=== PATIENT | female | born 1985 | race Caucasian/White ===

== ENCOUNTER 2017-11-24 15:18 | Emergency (ER) | payer BC, OTHER ==
[~2017-11-24] VITALS: Ht 162.6 cm; Wt 122.5 kg
--- NOTE | 2017-11-24 15:29 | ED Chest Pain ---
General Stated Complaint: CHEST PAIN Source: patient, EMS Exam Limitations: no limitations History of Present Illness Date Seen by Provider: November 24, 2017 Time Seen by Provider: 15:24 Initial Comments To ER per EMS from [facility] in [facility] where she presented with reports of chest tightness. She first noticed this chest tightness upon awakening this morning at about 8:30 AM he seemed to be brought on by bending over and worsens with certain movements, . She denies any associated shortness of breath or nausea. She states that she does get this chest tightness from time to time and states that it is typically associated with high blood pressure. Should she is on metoprolol daily, clonidine and hydrochlorothiazide. She took all of those. Upon EMS arrival blood pressure 120/ 80. Despite that her chest pain persists that about a 5 out of 10. She describes it as sharp and worse with movement. She was given aspirin 324 mg in route by EMS. No nitroglycerin. She has a father who had heart attack, mother is healthy, siblings are healthy. She is a diabetic herself. She is nonsmoker. Timing/Duration: constant Severity/Quality: moderate Location: central Radiation: no radiation Activities at Onset: rest Prior CP/Workup: no prior chest pain ASA po STORE LEAD: No NTG SL STORE LEAD: No Associated Symptoms: No nausea/vomiting, No shortness of breath Allergies and Home Medications Allergies Coded Allergies: pseudoephedrine (Unverified Adverse Reaction, Unknown, 11/24/17) PT STATES CAUSES VOMITING triprolidine (Unverified Adverse Reaction, Unknown, 11/24/17) PT STATES CAUSES VOMITING Patient Home Medication List Home Medication List Reviewed: Yes Review of Systems Constitutional: see HPI EENTM: No Symptoms Reported Respiratory: No Symptoms Reported Cardiovascular: See HPI, Chest Pain Gastrointestinal: No Symptoms Reported Genitourinary: No Symptoms Reported Musculoskeletal: no symptoms reported Skin: no symptoms reported Psychiatric/Neurological: No Symptoms Reported Endocrine: No Symptoms Reported Hematologic/Lymphatic: No Symptoms Reported Physical Exam Vital Signs Vital Signs - First Documented 11/24/17 16:47 Pulse Ox 95 Capillary Refill : General Appearance: No Apparent Distress, WD/WN, Obese HEENT: PERRL/EOMI, TMs Normal Neck: Full Range of Motion, Normal Inspection Respiratory: Lungs Clear, Normal Breath Sounds, No Accessory Muscle Use, No Respiratory Distress, Other (The left sternal border is tender to palpation and this does reproduce her pain) Cardiovascular: Regular Rate, Rhythm, Normal Peripheral Pulses Gastrointestinal: Normal Bowel Sounds, Non Tender, Soft Extremity: Normal Capillary Refill, Normal Inspection Neurologic/Psychiatric: Alert, Oriented x3 Skin: Normal Color, Warm/Dry Progress/Results/Core Measures Lab Results Laboratory Tests Test 11/24/17 15:30 11/24/17 15:53 Range/Units White Blood Count 8.0 4.3-11.0 10^3/uL Red Blood Count 4.57 4.35-5.85 10^6/uL Hemoglobin 12.6 11.5-16.0 G/DL Hematocrit 38 35-52 % Mean Corpuscular Volume 83 80-99 FL Mean Corpuscular Hemoglobin 28 25-34 PG Mean Corpuscular Hemoglobin Concent 33 32-36 G/DL Red Cell Distribution Width 13.0 10.0-14.5 % Platelet Count 289 130-400 10^3/uL Mean Platelet Volume 9.7 7.4-10.4 FL Neutrophils (%) (Auto) 66 42-75 % Lymphocytes (%) (Auto) 24 12-44 % Monocytes (%) (Auto) 7 0-12 % Eosinophils (%) (Auto) 3 0-10 % Basophils (%) (Auto) 1 0-10 % Neutrophils # (Auto) 5.3 1.8-7.8 X 10^3 Lymphocytes # (Auto) 1.9 1.0-4.0 X 10^3 Monocytes # (Auto) 0.6 0.0-1.0 X 10^3 Eosinophils # (Auto) 0.2 0.0-0.3 10^3/uL Basophils # (Auto) 0.0 0.0-0.1 10^3/uL Prothrombin Time 13.2 12.2-14.7 SEC INR Comment 1.0 0.8-1.4 Activated Partial Thromboplast Time 24 24-35 SEC Sodium Level 137 135-145 MMOL/L Potassium Level 4.7 3.6-5.0 MMOL/L Chloride Level 102 98-107 MMOL/L Carbon Dioxide Level 26 21-32 MMOL/L Anion Gap 9 5-14 MMOL/L Blood Urea Nitrogen 9 7-18 MG/DL Creatinine 0.63 0.60-1.30 MG/DL Estimat Glomerular Filtration Rate > 60 BUN/Creatinine Ratio 14 Glucose Level 216 H 70-105 MG/DL Calcium Level 9.1 8.5-10.1 MG/DL Magnesium Level 2.4 1.8-2.4 MG/DL Total Bilirubin 0.2 0.1-1.0 MG/DL Aspartate Amino Transf (AST/SGOT) 40 H 5-34 U/L Alanine Aminotransferase (ALT/SGPT) 34 0-55 U/L Alkaline Phosphatase 77 40-136 U/L Myoglobin 15.5 10.0-92.0 NG/ML Troponin I < 0.30 <0.30 NG/ML Total Protein 7.5 6.4-8.2 GM/DL Albumin 4.0 3.2-4.5 GM/DL D-Dimer 0.35 0.00-0.49 UG/ML My Orders Orders - KORIN NEGRO [employer] APPRENTICE Cbc With Automated Diff (11/24/17 15:23) Magnesium (11/24/17 15:23) Chest 1 View, Ap/Pa Only (11/24/17 15:23) Ekg Tracing (11/24/17 15:23) Cardiac Profile 1 (11/24/17 15:23) Comprehensive Metabolic Panel (11/24/17 15:23) Myoglobin Serum (11/24/17 15:23) Protime With Inr (11/24/17 15:23) Partial Thromboplastin Time (11/24/17 15:23) O2 (11/24/17 15:23) Monitor-Rhythm Ecg Trace Only (11/24/17 15:23) Saline Lock/Iv-Start (11/24/17 15:23) Fibrin Degradation Products (11/24/17 15:23) Vital Signs/I&O 11/24/17 11/24/17 11/24/17 15:20 15:20 16:47 Temp 99.0 98.2 Pulse 94 98 Resp 14 16 B/P (MAP) 141/87 (105) 152/103 Pulse Ox 95 O2 Delivery Room Air Room Air Room Air Progress Note : Progress Note 1634- pain is now completely gone. She denies any other symptoms. Her labs are unremarkable including a negative troponin despite 6-8 hours of constant chest pain. Chest pain is nonspecific. We will discharged home. D-dimer negative. Diagonstic Imaging: Xray Plain Films/CT/US/NM/MRI: chest Comments NAME: MARII HOLLAND [facility] REC#: [id number] PT STATUS: REG ER : 1985 PHYSICIAN: KORIN NEGRO APRN ADMIT DATE: 11/24/17/ER Signed Date of Exam:11/24/17 CHEST 1 VIEW, AP/PA ONLY INDICATION: Heart palpitations, feeling flushed. Sudden onset of sharp pain in chest earlier in the day.. TECHNIQUE: Single view chest 3:49 PM. CORRELATION STUDY: None FINDINGS: There is a limited overall depth of inspiration. Given this, the heart size, mediastinal configuration and pulmonary vascularity are within normal limits. The lungs are clear with no consolidating infiltrate. There is no significant effusion or pneumothorax. IMPRESSION: 1. No radiographic findings to suggest acute abnormality of the chest. Dictated by: Dictated on workstation # [id number] Dict: 11/24/17 1558 Trans: 11/24/17 1600 DO [id number] Interpreted by: MARI GARRETT DO Electronically signed by: MARI GARRETT DO 11/24/17 1600 Departure Impression Primary Impression: Chest pain Disposition: 01 HOME, SELF-CARE Condition: Improved Departure-Patient Inst. Decision time for Depature: 16:35 Patient Instructions: Chest Pain (DC) Add. Discharge Instructions: 1. Follow-up with your doctor later this week 2. Continue current medications 3. Return to ER for any worsening symptoms. Work/School Note: Work Release Form Date Seen in the Emergency Department: November 24, 2017 Return to Work: November 26, 2017 KORIN NEGRO APRN November 24, 2017 15:29
--- NOTE | 2017-11-24 16:02 | Diagnostic Imaging Report ---
INDICATION: Heart palpitations, feeling flushed. Sudden onset of sharp pain in chest earlier in the day.. TECHNIQUE: Single view chest 3:49 PM. CORRELATION STUDY: None FINDINGS: There is a limited overall depth of inspiration. Given this, the heart size, mediastinal configuration and pulmonary vascularity are within normal limits. The lungs are clear with no consolidating infiltrate. There is no significant effusion or pneumothorax. IMPRESSION: 1. No radiographic findings to suggest acute abnormality of the chest. Dictated by: Dictated on workstation # [id number]
[2017-11-24 16:03] LABS: ALANINE AMINOTRANSFERASE 34 U/L (0-55); ALKALINE PHOSPHATASE 77 U/L (40-136); BILIRUBIN,TOTAL 0.2 MG/DL (0.1-1.0); BUN/CREATININE RATIO 14; CALCIUM 9.1 MG/DL (8.5-10.1); CARBON DIOXIDE 26 MMOL/L (21-32); CHLORIDE 102 MMOL/L (98-107); CREATININE SERUM 0.63 MG/DL (0.60-1.30); GFR ESTIMATED > 60; GLUCOSE 216 MG/DL (70-105); MAGNESIUM 2.4 MG/DL (1.8-2.4); POTASSIUM 4.7 MMOL/L (3.6-5.0); SODIUM 137 MMOL/L (135-145); TOTAL PROTEIN 7.5 GM/DL (6.4-8.2)
[2017-11-24 16:09] LABS: MYOGLOBIN SERUM 15.5 NG/ML (10.0-92.0)
[2017-11-24 16:21] LABS: BASOPHILS % (AUTO) 1 % (0-10); EOSINOPHILS # (AUTO) 0.2 10^3/uL (0.0-0.3); EOSINOPHILS % (AUTO) 3 % (0-10); HEMATOCRIT 38 % (35-52); HEMOGLOBIN 12.6 G/DL (11.5-16.0); LYMPHOCYTES # (AUTO) 1.9 X 10^3 (1.0-4.0); LYMPHOCYTES % (AUTO) 24 % (12-44); MEAN CORPUSCULAR HEMOGLOBIN 28 PG (25-34); MEAN CORPUSCULAR HGB CONC 33 G/DL (32-36); MEAN CORPUSCULAR VOLUME 83 FL (80-99); MEAN PLATELET VOLUME 9.7 FL (7.4-10.4); MONOCYTES # (AUTO) 0.6 X 10^3 (0.0-1.0); MONOCYTES % (AUTO) 7 % (0-12); NEUTROPHILS # (AUTO) 5.3 X 10^3 (1.8-7.8); NEUTROPHILS % (AUTO) 66 % (42-75); PLATELET COUNT 289 10^3/uL (130-400); RED BLOOD COUNT 4.57 10^6/uL (4.35-5.85)
[2017-11-24 16:33] LABS: PROTHROMBIN TIME PATIENT 13.2 SEC (12.2-14.7)
[2017-11-24 16:47] VITALS: BP 152/103
== END 2017-11-24 16:43 | disposition home or self-care (01) ==
LOC: ER 15:21
DX: R07.89 Other chest pain (principal); Z88.8 Allergy status to other drugs, medicaments and biological substances; Z82.49 Family history of ischemic heart disease and other diseases of the circulatory system
CPT/HCPCS: 36415; 71045; 80053; 83735; 83874; 84484; 85025; 85379; 85610; 85730; 93005; 93041

== ENCOUNTER 2017-12-23 14:57 | Emergency (ER) | payer BC ==
[~2017-12-23] VITALS: Ht 160 cm; Wt 121.6 kg
[2017-12-23] MEDS ORDERED: IBUPROFEN 800 MG (MOTRIN) TAB PO STA (15:39)
--- NOTE | 2017-12-23 15:39 | ED EENT ---
History of Present Illness General Chief Complaint: General Problems/Pain Stated Complaint: LEFT EAR PAIN Nursing Triage Note: PATIENT STATES THAT SHE HAS HAD HEADACHE AND LEFT EAR PAIN X2 DAYS. SHE HAS ALSO VOMITTED ONCE NAD IS CONCERNED THAT SHE MAY HAVE RUPTURED HER EAR DRUM. History of Present Illness Date Seen by Provider: December 23, 2017 Time Seen by Provider: 15:30 Initial Comments 32-year-old female presents for left ear pain. Has had recurrent history of ear infections, none in the last year or 2. She states her ear began hurting significantly 2 days ago, she felt a pop in her ear this morning when vomiting and has had some relief of her symptoms since then. No previous history of surgeries to her left ear. No other complaints at this time. Timing/Duration: yesterday Location: ear (L) Prearrival Treatment: over the counter meds (Tylenol at 0800 today) Associated Symptoms: denies symptoms Allergies and Home Medications Allergies Coded Allergies: pseudoephedrine (Unverified Adverse Reaction, Unknown, 11/24/17) PT STATES CAUSES VOMITING triprolidine (Unverified Adverse Reaction, Unknown, 11/24/17) PT STATES CAUSES VOMITING Home Medications Cefdinir 300 Mg Capsule, 300 MG PO BID Prescribed by: MAGALI ALVAREZ on 12/23/17 8860 Patient Home Medication List Home Medication List Reviewed: Yes Review of Systems Constitutional: no symptoms reported, see HPI Ears: See HPI, Pain All Other Systems Reviewed Negative Unless Noted: Yes Past Gnxhzhp-Hsiewf-Ygbngb Hx Past Med/Social Hx: Reviewed Nursing Past Med/Soc Hx Patient Social History Alcohol Use: Denies Use Recreational Drug Use: No Smoking Status: Never a Smoker 2nd Hand Smoke Exposure: No Recent Foreign Travel: No Contact w/Someone Who Travel: No Recent Infectious Disease Expo: No Recent Hopitalizations: No Physical Abuse: No Sexual Abuse: No Seasonal Allergies Seasonal Allergies: No Past Medical History Surgeries: No Respiratory: No High Cholesterol Neurological: No Genitourinary: No Gastrointestinal: No Musculoskeletal: No Diabetes, Insulin dep HEENT: No Cancer: No Psychosocial: No Nursing Suicide Risk Score: 0 Integumentary: No Blood Disorders: No Adverse Reaction/Blood Tranf: No Physical Exam Vital Signs Vital Signs - First Documented 12/23/17 15:10 Temp 96.8 Pulse 105 Resp 18 B/P (MAP) 144/92 (109) Pulse Ox 95 O2 Delivery Room Air General Appearance: WD/WN, no apparent distress Eyes: bilateral eye normal inspection, bilateral eye PERRL, bilateral eye EOMI Ears: right ear TM normal; left ear erythema, left ear TM dull, left ear TM perforation; bilateral ear auricle normal, bilateral ear canal normal Nose: normal inspection; No active bleeding Mouth/Throat: normal mouth inspection, pharynx normal Neck: non-tender, full range of motion, supple, normal inspection; No lymphadenopathy (R), No lymphadenopathy (L) Cardiovascular: normal peripheral pulses, regular rate, rhythm Respiratory: chest non-tender, lungs clear Gastrointestinal: normal bowel sounds, non tender, soft Neurologic/Psychiatric: no motor/sensory deficits, alert, normal mood/affect, oriented x 3 Progress/Results/Core Measures Results/Orders My Orders Orders - MAGALI ALVAREZ Ibuprofen Tablet (Motrin Tablet) (12/23/17 15:39) Vital Signs/I&O 12/23/17 15:10 Temp 96.8 Pulse 105 Resp 18 B/P (MAP) 144/92 (109) Pulse Ox 95 O2 Delivery Room Air Blood Pressure Mean: 109 Departure Impression Primary Impression: Ruptured tympanic membrane Qualified Codes: H72.92 - Unspecified perforation of tympanic membrane, left ear Additional Impression: Otitis media Qualified Codes: H66.012 - Acute suppurative otitis media with spontaneous rupture of ear drum, left ear Disposition: 01 HOME, SELF-CARE Condition: Stable Departure-Patient Inst. Decision time for Depature: 15:40 Referrals: NO,LOCAL PHYSICIAN (PCP/Family) Primary Care Physician Patient Instructions: Ruptured Eardrum (DC) Add. Discharge Instructions: Alternate between ibuprofen 600 mg and acetaminophen 650 mg every 4 hours for pain. Take your antibiotic as prescribed. Keep your follow-up appointment with your primary care provider for early next week. Keep your left ear clean and dry at all times. He is a cotton ball when showering and avoid direct water into the left ear. Return to emergency department for new or worsening health care problems. All discharge instructions reviewed with patient and/or family. Voiced understanding. Scripts Cefdinir (Cefdinir) 300 Mg Capsule 300 MG PO BID, #20 CAP 0 Refills Prov: MAGALI ALVAREZ 12/23/17 Work/School Note: Work Release Form Date Seen in the Emergency Department: December 23, 2017 Return to Work: Dec 24, 2017 Restrictions: No Restrictions MAGALI ALVAREZ December 23, 2017 15:39
[2017-12-23] MEDS ORDERED: CEFD300C3 PO (15:44)
[2017-12-23 15:55] VITALS: BP 144/92
== END 2017-12-23 15:55 | disposition home or self-care (01) ==
LOC: EDUNIT# 14:57 → ER 14:58
DX: H72.92 Unspecified perforation of tympanic membrane, left ear (principal); H66.92 Otitis media, unspecified, left ear; E78.00 Pure hypercholesterolemia, unspecified; E11.9 Type 2 diabetes mellitus without complications; Z88.8 Allergy status to other drugs, medicaments and biological substances
CPT/HCPCS: 99283

== ENCOUNTER 2018-01-13 19:51 | Emergency (ER) | payer BC ==
[~2018-01-13] VITALS: Ht 162.6 cm; Wt 121.6 kg
[~2018-01-13 19:51] MED LIST: CEFD300C3 PO
[2018-01-13 20:37] LABS: BASOPHILS # (AUTO) 0.1 10^3/uL (0.0-0.1); BASOPHILS % (AUTO) 1 % (0-10); EOSINOPHILS # (AUTO) 0.1 10^3/uL (0.0-0.3); EOSINOPHILS % (AUTO) 1 % (0-10); HEMATOCRIT 43 % (35-52); HEMOGLOBIN 14.7 G/DL (11.5-16.0); LYMPHOCYTES # (AUTO) 2.7 X 10^3 (1.0-4.0); LYMPHOCYTES % (AUTO) 29 % (12-44); MEAN CORPUSCULAR HEMOGLOBIN 28 PG (25-34); MEAN CORPUSCULAR HGB CONC 34 G/DL (32-36); MEAN CORPUSCULAR VOLUME 81 FL (80-99); MONOCYTES # (AUTO) 0.8 X 10^3 (0.0-1.0); MONOCYTES % (AUTO) 9 % (0-12); NEUTROPHILS # (AUTO) 5.7 X 10^3 (1.8-7.8); NEUTROPHILS % (AUTO) 61 % (42-75); PLATELET COUNT 468 10^3/uL (130-400); RED BLOOD COUNT 5.32 10^6/uL (4.35-5.85); RED CELL DISTRIBUTION WIDTH 13.2 % (10.0-14.5); WHITE BLOOD COUNT 9.3 10^3/uL (4.3-11.0)
[2018-01-13 20:48] LABS: ALANINE AMINOTRANSFERASE 43 U/L (0-55); ALBUMIN 4.6 GM/DL (3.2-4.5); ALKALINE PHOSPHATASE 85 U/L (40-136); BILIRUBIN,TOTAL 0.5 MG/DL (0.1-1.0); BUN/CREATININE RATIO 13; CALCIUM 10.3 MG/DL (8.5-10.1); CARBON DIOXIDE 22 MMOL/L (21-32); CHLORIDE 94 MMOL/L (98-107); CREATININE SERUM 0.89 MG/DL (0.60-1.30); GFR ESTIMATED > 60; POTASSIUM 3.6 MMOL/L (3.6-5.0); SODIUM 134 MMOL/L (135-145); TOTAL PROTEIN 7.9 GM/DL (6.4-8.2)
[2018-01-13 20:51] LABS: BILIRUBIN,URINE NEGATIVE (NEGATIVE); CLARITY,URINE CLEAR; COLOR,URINE YELLOW; GLUCOSE, URINE (UA) 4+ (NEGATIVE); KETONES,URINE NEGATIVE (NEGATIVE); LEUKOCYTE ESTERASE ,URINE 1+ (NEGATIVE); NITRITE,URINE NEGATIVE (NEGATIVE); PH,URINE 6 (5-9); PROTEIN,URINE 3+ (NEGATIVE); UROBILINOGEN,URINE NORMAL (NORMAL)
[2018-01-13 20:52] LABS: GLUCOSE 462 MG/DL (70-105)
[2018-01-13 20:59] LABS: BACTERIA,URINE FEW /HPF; YEAST,URINE FEW /HPF
[2018-01-13] MEDS ORDERED: NS IV 1000 ML 1,000 ML IV SCH ×2 (21:00→22:00)
[2018-01-13] MEDS ORDERED: inSUlin (REGULAR) HUMAN 1 UNIT/0.01 ML (CHARGE PER UNIT) IV ONE (21:00)
--- NOTE | 2018-01-13 21:50 | ED General ---
General Chief Complaint: Glucose Problems Stated Complaint: BLOOD SUGAR ISSUES Nursing Triage Note: PT PRESENTS TO ER WITH COMPLAINT OF HIGH BS. PT STATES SHE WENT AND SAW HER PRIMARY TODAY FOR CHEST PAIN AND HEADACHE. STATES THEY DID BLOOD WORK, AND CALLED AND INSTRUCTED HER THAT SHE NEEDED TO GO A NEAREST HOSPITAL DUE TO HER BLOOD SUGAR BEING 443. 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 She takes Tresiba as a basal insulin at 65 units daily. She also takes metformin. She takes several antihypertensives. She reports that until July she had a different insulin product which she liked and performed better with however her insurance company would not pay for it. She was informed by another provider that in routine lab had shown a 400+ blood sugar today and it was recommended that she come to the emergency room for further evaluation. Timing/Duration: 12 Hours Allergies and Home Medications Allergies Coded Allergies: pseudoephedrine (Unverified Adverse Reaction, Unknown, 11/24/17) PT STATES CAUSES VOMITING triprolidine (Unverified Adverse Reaction, Unknown, 11/24/17) PT STATES CAUSES VOMITING Home Medications Cefdinir 300 Mg Capsule, 300 MG PO BID Prescribed by: MAGALI ALVAREZ on 12/23/17 1544 Patient Home Medication List Home Medication List Reviewed: Yes Review of Systems Constitutional: see HPI EENTM: no symptoms reported Respiratory: no symptoms reported Cardiovascular: no symptoms reported Gastrointestinal: no symptoms reported Genitourinary: no symptoms reported Musculoskeletal: no symptoms reported Skin: no symptoms reported Psychiatric/Neurological: No Symptoms Reported Hematologic/Lymphatic: No Symptoms Reported Immunological/Allergic: no symptoms reported Past Lcxdgld-Nyonpk-Fiykns Hx Patient Social History Alcohol Use: Denies Use Recreational Drug Use: No Smoking Status: Never a Smoker 2nd Hand Smoke Exposure: No Recent Foreign Travel: No Contact w/Someone Who Travel: No Recent Infectious Disease Expo: No Recent Hopitalizations: No Immunizations Up To Date Tetanus Booster (TDap): Unknown PED Vaccines UTD: Yes Seasonal Allergies Seasonal Allergies: No Past Medical History Surgeries: No Respiratory: No Cardiac: Yes High Cholesterol, Hypertension Neurological: No Genitourinary: No Gastrointestinal: No Musculoskeletal: No Endocrine: Yes Diabetes, Insulin dep HEENT: No Cancer: No Psychosocial: No Integumentary: No Blood Disorders: No Adverse Reaction/Blood Tranf: No Physical Exam Vital Signs Vital Signs - First Documented 01/13/18 19:55 Temp 98.3 Pulse 134 Resp 13 B/P (MAP) 137/96 (110) Pulse Ox 95 O2 Delivery Room Air Capillary Refill : Less Than 3 Seconds General Appearance: Obese Eyes: Bilateral Eye Normal Inspection HEENT: Normal ENT Inspection Neck: Full Range of Motion, Normal Inspection, Non Tender, Supple, Carotid Bruit Cardiovascular: Regular Rate, Rhythm, No Edema, No Gallop, No JVD, No Murmur, Normal Peripheral Pulses Gastrointestinal: Normal Bowel Sounds, No Organomegaly, No Pulsatile Mass, Non Tender, Soft Extremity: Normal Capillary Refill, Normal Inspection Neurologic/Psychiatric: Alert, Oriented x3, No Motor/Sensory Deficits, Normal Mood/Affect Skin: Normal Color Lymphatic: No Adenopathy Progress/Results/Core Measures Suspected Sepsis Recent Fever Within 48 Hours: No Infection Criteria Present: None New/Unexplained Altered Menta: No Sepsis Screen: No Definite Risk SIRS Temperature:98.3 Pulse: 134 Respiratory Rate: 13 Laboratory Tests 01/13/18 20:04: White Blood Count 9.3 Blood Pressure 137 /96 Mean: 110 Laboratory Tests 01/13/18 20:04: Creatinine 0.89, Platelet Count 468H, Total Bilirubin 0.5 Results/Orders Lab Results Laboratory Tests Test 01/13/18 20:04 01/13/18 20:06 01/13/18 20:46 Range/Units White Blood Count 9.3 4.3-11.0 10^3/uL Red Blood Count 5.32 4.35-5.85 10^6/uL Hemoglobin 14.7 11.5-16.0 G/DL Hematocrit 43 35-52 % Mean Corpuscular Volume 81 80-99 FL Mean Corpuscular Hemoglobin 28 25-34 PG Mean Corpuscular Hemoglobin Concent 34 32-36 G/DL Red Cell Distribution Width 13.2 10.0-14.5 % Platelet Count 468 H 130-400 10^3/uL Mean Platelet Volume 10.0 7.4-10.4 FL Neutrophils (%) (Auto) 61 42-75 % Lymphocytes (%) (Auto) 29 12-44 % Monocytes (%) (Auto) 9 0-12 % Eosinophils (%) (Auto) 1 0-10 % Basophils (%) (Auto) 1 0-10 % Neutrophils # (Auto) 5.7 1.8-7.8 X 10^3 Lymphocytes # (Auto) 2.7 1.0-4.0 X 10^3 Monocytes # (Auto) 0.8 0.0-1.0 X 10^3 Eosinophils # (Auto) 0.1 0.0-0.3 10^3/uL Basophils # (Auto) 0.1 0.0-0.1 10^3/uL Sodium Level 134 L 135-145 MMOL/L Potassium Level 3.6 3.6-5.0 MMOL/L Chloride Level 94 L 98-107 MMOL/L Carbon Dioxide Level 22 21-32 MMOL/L Anion Gap 18 H 5-14 MMOL/L Blood Urea Nitrogen 12 7-18 MG/DL Creatinine 0.89 0.60-1.30 MG/DL Estimat Glomerular Filtration Rate > 60 BUN/Creatinine Ratio 13 Glucose Level 462 *H 70-105 MG/DL Calcium Level 10.3 H 8.5-10.1 MG/DL Total Bilirubin 0.5 0.1-1.0 MG/DL Aspartate Amino Transf (AST/SGOT) 25 5-34 U/L Alanine Aminotransferase (ALT/SGPT) 43 0-55 U/L Alkaline Phosphatase 85 40-136 U/L Total Protein 7.9 6.4-8.2 GM/DL Albumin 4.6 H 3.2-4.5 GM/DL Glucometer 415 *H 70-110 MG/DL Urine Color YELLOW Urine Clarity CLEAR Urine pH 6 5-9 Urine Specific [place] 1.015 L 1.016-1.022 Urine Protein 3+ H NEGATIVE Urine Glucose (UA) 4+ H NEGATIVE Urine Ketones NEGATIVE NEGATIVE Urine Nitrite NEGATIVE NEGATIVE Urine Bilirubin NEGATIVE NEGATIVE Urine Urobilinogen NORMAL NORMAL MG/DL Urine Leukocyte Esterase 1+ H NEGATIVE Urine RBC (Auto) NEGATIVE NEGATIVE Urine RBC NONE /HPF Urine WBC 10-25 H /HPF Urine Squamous Epithelial Cells 10-25 H /HPF Urine Crystals NONE /LPF Urine Bacteria FEW H /HPF Urine Casts NONE /LPF Urine Mucus NEGATIVE /LPF Urine Yeast FEW H /HPF Urine Culture Indicated YES My Orders Orders - GISSEL DOMINGO MD Cbc With Automated Diff (6/21/18 20:32) Comprehensive Metabolic Panel (01/13/18 20:32) Ua Culture If Indicated (01/13/18 20:32) Ns Iv 1000 Ml (Sodium Chloride 0.9%) (01/13/18 21:00) Insulin (Regular) Human (Humulin R (Per (01/13/18 21:00) Urine Culture (01/13/18 20:46) Medications Given in ED Current Medications Medications Dose Ordered Sig/Holly Route Start Time Stop Time Status Last Admin Dose Admin Insulin Human Regular 10 unit ONCE ONCE IV 01/13/18 21:00 01/13/18 21:01 DC 01/13/18 21:02 10 UNIT Vital Signs/I&O 01/13/18 19:55 Temp 98.3 Pulse 134 Resp 13 B/P (MAP) 137/96 (110) Pulse Ox 95 O2 Delivery Room Air Capillary Refill : Less Than 3 Seconds Blood Pressure Mean: 110 Departure Impression Primary Impression: hyperglycemia Additional Impression: urinary tract infection Disposition: HOME, SELF-CARE Condition: Improved Departure-Patient Inst. Decision time for Depature: 21:52 Referrals: NO,LOCAL PHYSICIAN (PCP) Primary Care Physician Patient Instructions: Diabetes Type 2 (DC), Diabetes Type 1, Child (DC) Add. Discharge Instructions: All discharge instructions reviewed with patient and/or family. Voiced understanding. Plenty of liquids. Begin oral Cefdinir tomorrow evening Take your 65 units of basal insulin as normally. Restart your metformin as well. Contact your provider tomorrow relative to changes in insulin regimen Scripts Cefdinir (Cefdinir) 300 Mg Capsule 300 MG PO Twice a day, #10 CAP Prov: GISSEL DOMINGO MD 01/13/18 GISSEL DOMINGO MD Jan 13, 2018 21:50
[2018-01-13] MEDS ORDERED: CEFD300C3 PO (21:55)
[2018-01-13] MEDS ORDERED: cefTRIAXone INJECTION 1,000 MG in NS (IVPB) 50 ML IV ONE (22:00)
[2018-01-13] MEDS ORDERED: inSUlin ASPART (NovoLOG) 1 UNIT/0.01 ML (CHARGE PER UNIT) IV ONE (22:00)
[2018-01-13] MEDS ORDERED: cefTRIAXone 1 GM (ROCEPHIN) VIAL ONE (22:07)
[2018-01-13] MEDS: NS IV 500 ML 500 ML ONE (22:13)
[2018-01-13] MEDS: NS (IVPB) 50 ML ONE ×2 (22:13→22:14)
[2018-01-13 22:46] VITALS: BP 137/96
[2018-01-14] MEDS ORDERED: SYRI-820 MC (19:26)
[2018-01-14] MEDS ORDERED: INSU100V16 SQ (19:26)
== END 2018-01-13 22:46 | disposition home or self-care (01) ==
LOC: EDUNIT# 19:51 → ER 19:52
DX: E11.65 Type 2 diabetes mellitus with hyperglycemia (principal); N39.0 Urinary tract infection, site not specified; I10 Essential (primary) hypertension; E78.00 Pure hypercholesterolemia, unspecified; Z88.8 Allergy status to other drugs, medicaments and biological substances; Z79.84 Long term (current) use of oral hypoglycemic drugs
CPT/HCPCS: 36415; 80053; 81000; 82962; 85025; 87088; 96361; 96365; 96375; 96376

== ENCOUNTER 2018-01-14 18:09 | Emergency (ER) | payer BC ==
[~2018-01-14] VITALS: Ht 162.6 cm; Wt 117.9 kg
[2018-01-14] MEDS ORDERED: NS IV 1000 ML 1,000 ML IV SCH ×2 (18:20→18:43)
[2018-01-14 18:28] LABS: BASOPHILS % (AUTO) 0 % (0-10); EOSINOPHILS # (AUTO) 0.1 10^3/uL (0.0-0.3); EOSINOPHILS % (AUTO) 1 % (0-10); HEMATOCRIT 39 % (35-52); HEMOGLOBIN 13.6 G/DL (11.5-16.0); LYMPHOCYTES # (AUTO) 1.9 X 10^3 (1.0-4.0); LYMPHOCYTES % (AUTO) 20 % (12-44); MEAN CORPUSCULAR HEMOGLOBIN 29 PG (25-34); MEAN CORPUSCULAR HGB CONC 35 G/DL (32-36); MEAN CORPUSCULAR VOLUME 82 FL (80-99); MEAN PLATELET VOLUME 9.6 FL (7.4-10.4); MONOCYTES # (AUTO) 0.8 X 10^3 (0.0-1.0); MONOCYTES % (AUTO) 8 % (0-12); NEUTROPHILS # (AUTO) 6.6 X 10^3 (1.8-7.8); NEUTROPHILS % (AUTO) 70 % (42-75); PLATELET COUNT 385 10^3/uL (130-400); RED BLOOD COUNT 4.74 10^6/uL (4.35-5.85); WHITE BLOOD COUNT 9.5 10^3/uL (4.3-11.0)
[2018-01-14] MEDS ORDERED: inSUlin (REGULAR) HUMAN 1 UNIT/0.01 ML (CHARGE PER UNIT) SC ONE (18:45)
[2018-01-14 18:48] LABS: ALANINE AMINOTRANSFERASE 43 U/L (0-55); ALBUMIN 4.2 GM/DL (3.2-4.5); ALKALINE PHOSPHATASE 77 U/L (40-136); BILIRUBIN,TOTAL 0.5 MG/DL (0.1-1.0); BUN/CREATININE RATIO 15; CALCIUM 9.6 MG/DL (8.5-10.1); CARBON DIOXIDE 23 MMOL/L (21-32); CHLORIDE 100 MMOL/L (98-107); CREATININE SERUM 0.82 MG/DL (0.60-1.30); GFR ESTIMATED > 60; GLUCOSE 362 MG/DL (70-105); MAGNESIUM 1.8 MG/DL (1.8-2.4); POTASSIUM 3.7 MMOL/L (3.6-5.0); SODIUM 138 MMOL/L (135-145)
[2018-01-14 19:12] LABS: BILIRUBIN,URINE NEGATIVE (NEGATIVE); CLARITY,URINE SLIGHTLY CLOUDY; COLOR,URINE YELLOW; GLUCOSE, URINE (UA) 4+ (NEGATIVE); KETONES,URINE 2+ (NEGATIVE); LEUKOCYTE ESTERASE ,URINE 1+ (NEGATIVE); NITRITE,URINE NEGATIVE (NEGATIVE); PH,URINE 5 (5-9); PROTEIN,URINE 2+ (NEGATIVE); UROBILINOGEN,URINE NORMAL (NORMAL)
--- NOTE | 2018-01-14 19:15 | ED GI ---
General Chief Complaint: Glucose Problems Stated Complaint: ELEV BLOOD SUGAR Nursing Triage Note: STATES BLOOD SUGAR ELEVATED OVER 300, FEELING RAPID HEART RATE. Sepsis Screen: No Definite Risk Source of Information: Patient, Old Records Exam Limitations: No Limitations History of Present Illness Date Seen by Provider: Jan 14, 2018 Time Seen by Provider: 18:35 Initial Comments The patient presents to the ER by private conveyance with a chief complaint that she is still having high blood sugars. This is recently started the last couple months going up above 2-300. Yesterday she had a blood sugar over 400 from the clinic in [place] where she follows. 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 Meidna that she saw back in November. At that time however her blood sugar was in the upper 100s to low 200s and she was increased on her dose of Tresiba. She takes Tresiba as a basal insulin at 65 units daily. She also takes metformin. She takes several antihypertensives. She's not been feeling well she been having nausea and occasional abdominal pain. She's been urinating frequently and drinking a lot of fluids. She's had no fevers or chills. She has not had anything for nausea and she says that it's okay at the moment. She is not taking anything for the pain. She's had diabetes type 2 for the last several years. She's not having painful urination. She is not sure when her last menstrual. It is. She was seen yesterday in the ER for similar complaint. She was told she had a urinary tract infection and was sent out on Omnicef which she picked up and started today. Patient says she hasn't contacted her gaming worker as instructed yesterday but she is still not heard back and she is going into the weekend and still not feeling well. Allergies and Home Medications Allergies Coded Allergies: pseudoephedrine (Unverified Adverse Reaction, Unknown, 11/24/17) PT STATES CAUSES VOMITING triprolidine (Unverified Adverse Reaction, Unknown, 11/24/17) PT STATES CAUSES VOMITING Home Medications Cefdinir 300 Mg Capsule, 300 MG PO BID Prescribed by: MAGALI ALVAREZ on 12/23/17 1544 Cefdinir 300 Mg Capsule, 300 MG PO Twice a day Prescribed by: GISSEL DOMINGO on 01/13/18 2155 Insulin Aspart 100 Unit/1 Ml Susp, 4 UNIT SQ AC Glucose 60-180 take 0 units 181-200 4u 201-250 6 u 251-300 8 u 301-350 10 u 351-400 12 u Greater than 401 call provider Prescribed by: MADELIN CASTANEDA on 01/14/181925 Patient Home Medication List Home Medication List Reviewed: Yes Review of Systems Constitutional: No chills, No diaphoresis, No fever, No malaise EENTM: No Blurred Vision, No Double Vision Respiratory: Denies Cough, Denies Shortness of Air Cardiovascular: Denies Chest Pain, Denies Lightheadedness Gastrointestinal: Abdominal Pain (diffuse mild); Denies Constipated, Denies Diarrhea, Denies Difficulty Swallowing; Nausea; Denies Poor Fluid Intake; Vomiting Genitourinary: Denies Burning, Denies Discharge Musculoskeletal: No back pain, No joint pain Skin: No pruritus, No rash Psychiatric/Neurological: Denies Headache, Denies Numbness, Denies Paresthesia Past Kiuirzz-Ojcima-Kcjmks Hx Patient Social History Alcohol Use: Denies Use Recreational Drug Use: No Smoking Status: Never a Smoker 2nd Hand Smoke Exposure: No Recent Foreign Travel: No Contact w/Someone Who Travel: No Recent Infectious Disease Expo: No Recent Hopitalizations: No Immunizations Up To Date Tetanus Booster (TDap): Unknown PED Vaccines UTD: Yes Seasonal Allergies Seasonal Allergies: No Past Medical History Surgeries: No Respiratory: No Cardiac: Yes High Cholesterol, Hypertension Neurological: No Genitourinary: No Gastrointestinal: No Musculoskeletal: No Endocrine: Yes Diabetes, Insulin dep HEENT: No Cancer: No Psychosocial: No Integumentary: No Blood Disorders: No Adverse Reaction/Blood Tranf: No Physical Exam Vital Signs Vital Signs - First Documented 01/14/18 18:25 Temp 98.0 Pulse 110 Resp 20 B/P (MAP) 133/91 (105) Pulse Ox 93 O2 Delivery Room Air Capillary Refill : Less Than 3 Seconds General Appearance: WD/WN, no apparent distress HEENT: PERRL/EOMI, normal ENT inspection, TMs normal, pharynx normal ( oropharynx is dry) Neck: non-tender, full range of motion, supple, normal inspection Respiratory: chest non-tender, lungs clear, normal breath sounds, no respiratory distress, no accessory muscle use Cardiovascular: normal peripheral pulses, regular rate, rhythm, no edema Peripheral Pulses: 2+ Radial Pulses (R), 2+ Radial Pulses (L) Gastrointestinal: normal bowel sounds, non tender, soft, no organomegaly Extremities: normal range of motion, normal inspection, no pedal edema, no calf tenderness, normal capillary refill Neurologic/Psychiatric: no motor/sensory deficits, alert, normal mood/affect, oriented x 3 Skin: normal color, warm/dry Progress/Results/Core Measures Results/Orders Lab Results Laboratory Tests Test 01/14/18 18:21 01/14/18 18:22 01/14/18 19:02 01/14/18 19:21 Range/Units White Blood Count 9.5 4.3-11.0 10^3/uL Red Blood Count 4.74 4.35-5.85 10^6/uL Hemoglobin 13.6 11.5-16.0 G/DL Hematocrit 39 35-52 % Mean Corpuscular Volume 82 80-99 FL Mean Corpuscular Hemoglobin 29 25-34 PG Mean Corpuscular Hemoglobin Concent 35 32-36 G/DL Red Cell Distribution Width 13.0 10.0-14.5 % Platelet Count 385 130-400 10^3/uL Mean Platelet Volume 9.6 7.4-10.4 FL Neutrophils (%) (Auto) 70 42-75 % Lymphocytes (%) (Auto) 20 12-44 % Monocytes (%) (Auto) 8 0-12 % Eosinophils (%) (Auto) 1 0-10 % Basophils (%) (Auto) 0 0-10 % Neutrophils # (Auto) 6.6 1.8-7.8 X 10^3 Lymphocytes # (Auto) 1.9 1.0-4.0 X 10^3 Monocytes # (Auto) 0.8 0.0-1.0 X 10^3 Eosinophils # (Auto) 0.1 0.0-0.3 10^3/uL Basophils # (Auto) 0.0 0.0-0.1 10^3/uL Sodium Level 138 135-145 MMOL/L Potassium Level 3.7 3.6-5.0 MMOL/L Chloride Level 100 98-107 MMOL/L Carbon Dioxide Level 23 21-32 MMOL/L Anion Gap 15 H 5-14 MMOL/L Blood Urea Nitrogen 12 7-18 MG/DL Creatinine 0.82 0.60-1.30 MG/DL Estimat Glomerular Filtration Rate > 60 BUN/Creatinine Ratio 15 Glucose Level 362 H 70-105 MG/DL Calcium Level 9.6 8.5-10.1 MG/DL Magnesium Level 1.8 1.8-2.4 MG/DL Total Bilirubin 0.5 0.1-1.0 MG/DL Aspartate Amino Transf (AST/SGOT) 33 5-34 U/L Alanine Aminotransferase (ALT/SGPT) 43 0-55 U/L Alkaline Phosphatase 77 40-136 U/L Total Protein 7.0 6.4-8.2 GM/DL Albumin 4.2 3.2-4.5 GM/DL Serum Test, Qualitative NEGATIVE NEGATIVE Glucometer 345 H 322 H 70-110 MG/DL Urine Color YELLOW Urine Clarity SLIGHTLY CLOUDY Urine pH 5 5-9 Urine Specific Larose 1.020 1.016-1.022 Urine Protein 2+ H NEGATIVE Urine Glucose (UA) 4+ H NEGATIVE Urine Ketones 2+ H NEGATIVE Urine Nitrite NEGATIVE NEGATIVE Urine Bilirubin NEGATIVE NEGATIVE Urine Urobilinogen NORMAL NORMAL MG/DL Urine Leukocyte Esterase 1+ H NEGATIVE Urine RBC (Auto) NEGATIVE NEGATIVE Urine RBC NONE /HPF Urine WBC 5-10 H /HPF Urine Squamous Epithelial Cells 5-10 /HPF Urine Crystals NONE /LPF Urine Bacteria TRACE /HPF Urine Casts NONE /LPF Urine Mucus NEGATIVE /LPF Urine Yeast FEW H /HPF Urine Culture Indicated YES Urine Opiates Screen NEGATIVE NEGATIVE Urine Oxycodone Screen NEGATIVE NEGATIVE Urine Methadone Screen NEGATIVE NEGATIVE Urine Propoxyphene Screen NEGATIVE NEGATIVE Urine Barbiturates Screen NEGATIVE NEGATIVE Ur Tricyclic Antidepressants Screen NEGATIVE NEGATIVE Urine Phencyclidine Screen NEGATIVE NEGATIVE Urine Amphetamines Screen NEGATIVE NEGATIVE Urine Methamphetamines Screen NEGATIVE NEGATIVE Urine Benzodiazepines Screen NEGATIVE NEGATIVE Urine Cocaine Screen NEGATIVE NEGATIVE Urine Cannabinoids Screen NEGATIVE NEGATIVE My Orders Orders - MADELIN CASTANEDA Cbc With Automated Diff (01/14/18 18:20) Comprehensive Metabolic Panel (01/14/18 18:20) Drug Screen Stat (Urine) (01/14/18 18:20) Hcg,Qualitative Serum (01/14/18 18:20) Magnesium (01/14/18 18:20) Ua Culture If Indicated (01/14/18 18:20) Saline Lock/Iv-Start (01/14/18 18:20) Ns Iv 1000 Ml (Sodium Chloride 0.9%) (01/14/18 18:20) Ns Iv 1000 Ml (Sodium Chloride 0.9%) (01/14/18 18:43) Accucheck Stat ONCE (01/14/18 18:43) Insulin (Regular) Human (Humulin R (Per (01/14/18 18:45) Urine Culture (01/14/18 19:02) Medications Given in ED Current Medications Medications Dose Ordered Sig/Holly Route Start Time Stop Time Status Last Admin Dose Admin Insulin Human Regular 10 unit ONCE ONCE SC 01/14/18 18:45 01/14/18 18:46 DC 01/14/18 18:49 10 UNIT Vital Signs/I&O 01/14/18 18:25 Temp 98.0 Pulse 110 Resp 20 B/P (MAP) 133/91 (105) Pulse Ox 93 O2 Delivery Room Air Blood Pressure Mean: 105 FSBG Bedside Testing Finger Stick Blood Glucose: 345 Blood Glucose Action Taken: doc notified Progress Progress Note #1: Time: 19:14 Progress Note Plan to give her 0.1 units of regular insulin subcutaneous per kilogram. We'll then recheck an Accu-Chek about 30-45 minutes later. We'll give her 2 L of IV fluids as she looks like she's rather on the dry side and we've offered her Zofran which she is declining. Make sure she goes home with some if we don't find anything further worrisome. Looks like she's recently started treatment for a UTI which could be causing her hyperglycemic episode. We can also make sure that she has some orders for short acting NovoLog before she leaves. Progress Note #2: Time: 20:32 Progress Note The patient's got HER 2 liters of IV fluids now feeling much better. Her blood sugar did come down much we'll continue to work on outpatient with some rapid acting insulin. Her tachycardia is probably due to the fact she is on for her blood pressure medicines and she is several hours overdue for them. Departure Impression Primary Impression: Hyperglycemia Additional Impressions: Diabetes mellitus Qualified Codes: E11.8 - Type 2 diabetes mellitus with unspecified complications UTI (urinary tract infection) Qualified Codes: N30.00 - Acute cystitis without hematuria Disposition: 01 HOME, SELF-CARE Condition: Improved Departure-Patient Inst. Decision time for Depature: 19:44 Referrals: NO,LOCAL PHYSICIAN (PCP/Family) Primary Care Physician Patient Instructions: Diabetes Type 2 (DC) Add. Discharge Instructions: cartography supervisor the NovoLog and syringes from the pharmacy and start using for the following sliding scale 3 times a day with meals: Glucose level 60-180 take no NovoLog. 181-200 take four units 201-250 take 6 units 251-300 take 8 units 301-350 take 10 units 351-400 take 12 units Greater than 401 call your provider. Start a log of how much insulin you're taking and what your blood sugars are before meals over the next couple weeks and take that information with you to your primary care provider or your gaming worker appointment. All discharge instructions reviewed with patient and/or family. Voiced understanding. Scripts Syring W-Ndl,Disp,Insul,0.5 ml (Insulin Syringe) 1 Each Disp.syrin EACH MC TIDAC for Hyperglycemia, #100 0 Refills Prov: MADELIN CASTANEDA 01/14/18 Insulin Aspart (Novolog) 100 Unit/1 Ml Susp 4 UNIT SQ AC for 30 Days, #1 EACH 0 Refills Glucose 60-180 take 0 units 181-200 4u 201-250 6 u 251-300 8 u 301-350 10 u 351-400 12 u Greater than 401 call provider Prov: MADELIN CASTANEDA 01/14/18 Copy Copies To 1: RAUL ABRAMS DO MADELIN CASTANEDA Jan 14, 2018 19:15
[2018-01-14 19:19] LABS: BACTERIA,URINE TRACE /HPF; YEAST,URINE FEW /HPF
[2018-01-14 19:26] LABS: AMPHETAMINE SCREEN, URINE NEGATIVE (NEGATIVE); BARBITURATE SCREEN URINE NEGATIVE (NEGATIVE); BENZODIAZEPINES SCREEN URINE NEGATIVE (NEGATIVE); CANNABINOID SCREEN, URINE NEGATIVE (NEGATIVE); COCAINE SCREEN URINE NEGATIVE (NEGATIVE); METHADONE STAT NEGATIVE (NEGATIVE); METHAMPHETAMINE SCREEN URINE S NEGATIVE (NEGATIVE); OPIATE SCREEN URINE NEGATIVE (NEGATIVE); OXYCODONE STAT NEGATIVE (NEGATIVE); PROPOXYPHENE STAT NEGATIVE (NEGATIVE); TRICYCLIC ANTIDEPRESSANTS SCRE NEGATIVE (NEGATIVE)
[2018-01-14] MEDS ORDERED: INSU100V16 SQ (19:26)
[2018-01-14] MEDS ORDERED: SYRI-820 MC (19:26)
[2018-01-14 20:55] VITALS: BP 129/90
== END 2018-01-14 20:57 | disposition home or self-care (01) ==
LOC: EDUNIT# 18:09 → ER 18:09
DX: E11.65 Type 2 diabetes mellitus with hyperglycemia (principal); N39.0 Urinary tract infection, site not specified; E78.00 Pure hypercholesterolemia, unspecified; I10 Essential (primary) hypertension; Z88.8 Allergy status to other drugs, medicaments and biological substances; Z79.4 Long term (current) use of insulin
CPT/HCPCS: 36415; 80053; 80306; 81000; 82962; 83735; 84703; 85025; 87088

== ENCOUNTER 2018-01-21 14:48 | Emergency (ER) | payer BC ==
[~2018-01-21] VITALS: Ht 162.6 cm; Wt 117.9 kg
[~2018-01-21 14:48] MED LIST changes: +INSU100V16 SQ; +SYRI-820 MC
--- NOTE | 2018-01-21 15:58 | ED Cardiac General ---
History of Present Illness General Chief Complaint: Cardiac/General Problems Stated Complaint: HEART RACING Nursing Triage Note: PATIENT STATES THAT HER HEART HAS BEEN RACING X2 HRS. SHE HAS A HISTORY OF TACHYCARDIA. LAST EPISODE WAS 6 WEEKS AGO. Source: patient Exam Limitations: no limitations History of Present Illness Date Seen by Provider: Jan 21, 2018 Time Seen by Provider: 15:54 Initial Comments to ER with reports of sensation of tachycardia and palpitations with some central chest discomfort. This began 2 hours ago while sitting on her couch at rest. She denies any shortness of breath. She had a similar episode a few weeks ago. She's been seen at [facility] for this in years past and diagnosed with "tachycardia". She was seen here in the emergency room about 2 weeks ago for a hyperglycemic episode. She states that her sugars have still been running high in the 300-400 range. She is on metformin and Tresiba. Timing/Duration: constant Severity: moderate NTG SL SHIPPING LEAD PERSON: No ASA po SHIPPING LEAD PERSON: No Associated Systoms: Chest Pain; No Syncope, No Weakness Allergies and Home Medications Allergies Coded Allergies: pseudoephedrine (Unverified Adverse Reaction, Unknown, 11/24/17) PT STATES CAUSES VOMITING triprolidine (Unverified Adverse Reaction, Unknown, 11/24/17) PT STATES CAUSES VOMITING Home Medications Cefdinir 300 Mg Capsule, 300 MG PO BID Prescribed by: MAGALI ALVAREZ on 12/23/17 1544 Cefdinir 300 Mg Capsule, 300 MG PO Twice a day Prescribed by: GISSEL DOMINGO on 01/13/18 2155 Insulin Aspart 100 Unit/1 Ml Susp, 4 UNIT SQ AC Glucose 60-180 take 0 units 181-200 4u 201-250 6 u 251-300 8 u 301-350 10 u 351-400 12 u Greater than 401 call provider Prescribed by: MADELIN CASTANEDA on 01/14/18 1926 Patient Home Medication List Home Medication List Reviewed: Yes Review of Systems Constitutional: see HPI EENTM: No Symptoms Reported Respiratory: See HPI; Denies Cough, Denies Orthopnea, Denies Shortness of Air, Denies SOA With Exertion, Denies SOA at Rest Cardiovascular: See HPI, Chest Pain, Irregular Heart Rate, Palpitations Gastrointestinal: No Symptoms Reported, See HPI; Denies Nausea Genitourinary: No Symptoms Reported Musculoskeletal: no symptoms reported Skin: no symptoms reported Psychiatric/Neurological: No Symptoms Reported Endocrine: No Symptoms Reported Past Sfqssdq-Bospri-Mgjuql Hx Patient Social History Alcohol Use: Denies Use Recreational Drug Use: No Smoking Status: Never a Smoker 2nd Hand Smoke Exposure: No Recent Foreign Travel: No Contact w/Someone Who Travel: No Recent Infectious Disease Expo: No Recent Hopitalizations: No Physical Abuse: No Sexual Abuse: No Immunizations Up To Date Tetanus Booster (TDap): Unknown PED Vaccines UTD: Yes Seasonal Allergies Seasonal Allergies: No Past Medical History Surgeries: No Respiratory: No Cardiac: Yes High Cholesterol, Hypertension Neurological: No Genitourinary: No Gastrointestinal: No Musculoskeletal: No Endocrine: Yes Diabetes, Insulin dep HEENT: No Cancer: No Psychosocial: No Nursing Suicide Risk Score: 0 Integumentary: No Blood Disorders: No Adverse Reaction/Blood Tranf: No Physical Exam Vital Signs Vital Signs - First Documented 01/21/18 15:20 Temp 97.5 Pulse 89 Resp 18 B/P (MAP) 132/85 (101) Pulse Ox 95 Capillary Refill : Less Than 3 Seconds General Appearance: No Apparent Distress, WD/WN HEENT: PERRL/EOMI, TMs Normal Respiratory: Normal Breath Sounds, No Accessory Muscle Use, No Respiratory Distress Cardiovascular: Regular Rate, Rhythm, Normal Peripheral Pulses, Other (She currently reports a sensation of tachycardia. when attached to the front desk monitor her heart rate is anywhere from 85-97 sinus without ectopy) Gastrointestinal: Normal Bowel Sounds, Non Tender, Soft Extremity: Normal Capillary Refill, Normal Inspection, Normal Range of Motion Neurologic/Psychiatric: Alert, Oriented x3, No Motor/Sensory Deficits, Normal Mood/Affect Skin: Normal Color, Warm/Dry Progress/Results/Core Measures Results/Orders Lab Results Laboratory Tests Test 01/21/18 16:00 01/21/18 16:08 Range/Units Urine Color YELLOW Urine Clarity CLEAR Urine pH 6.5 5-9 Urine Specific Brilliant 1.015 L 1.016-1.022 Urine Protein 2+ H NEGATIVE Urine Glucose (UA) 4+ H NEGATIVE Urine Ketones NEGATIVE NEGATIVE Urine Nitrite NEGATIVE NEGATIVE Urine Bilirubin NEGATIVE NEGATIVE Urine Urobilinogen NORMAL NORMAL MG/DL Urine Leukocyte Esterase NEGATIVE NEGATIVE Urine RBC (Auto) NEGATIVE NEGATIVE Urine RBC NONE /HPF Urine WBC NONE /HPF Urine Squamous Epithelial Cells 2-5 /HPF Urine Crystals NONE /LPF Urine Bacteria NEGATIVE /HPF Urine Casts NONE /LPF Urine Mucus NEGATIVE /LPF Urine Culture Indicated NO Urine Opiates Screen NEGATIVE NEGATIVE Urine Oxycodone Screen NEGATIVE NEGATIVE Urine Methadone Screen NEGATIVE NEGATIVE Urine Propoxyphene Screen NEGATIVE NEGATIVE Urine Barbiturates Screen NEGATIVE NEGATIVE Ur Tricyclic Antidepressants Screen NEGATIVE NEGATIVE Urine Phencyclidine Screen NEGATIVE NEGATIVE Urine Amphetamines Screen NEGATIVE NEGATIVE Urine Methamphetamines Screen NEGATIVE NEGATIVE Urine Benzodiazepines Screen NEGATIVE NEGATIVE Urine Cocaine Screen NEGATIVE NEGATIVE Urine Cannabinoids Screen NEGATIVE NEGATIVE White Blood Count 8.5 4.3-11.0 10^3/uL Red Blood Count 4.93 4.35-5.85 10^6/uL Hemoglobin 13.9 11.5-16.0 G/DL Hematocrit 40 35-52 % Mean Corpuscular Volume 82 80-99 FL Mean Corpuscular Hemoglobin 28 25-34 PG Mean Corpuscular Hemoglobin Concent 35 32-36 G/DL Red Cell Distribution Width 13.2 10.0-14.5 % Platelet Count 378 130-400 10^3/uL Mean Platelet Volume 9.6 7.4-10.4 FL Neutrophils (%) (Auto) 60 42-75 % Lymphocytes (%) (Auto) 30 12-44 % Monocytes (%) (Auto) 8 0-12 % Eosinophils (%) (Auto) 2 0-10 % Basophils (%) (Auto) 1 0-10 % Neutrophils # (Auto) 5.1 1.8-7.8 X 10^3 Lymphocytes # (Auto) 2.6 1.0-4.0 X 10^3 Monocytes # (Auto) 0.7 0.0-1.0 X 10^3 Eosinophils # (Auto) 0.1 0.0-0.3 10^3/uL Basophils # (Auto) 0.0 0.0-0.1 10^3/uL D-Dimer < 0.27 0.00-0.49 UG/ML Sodium Level 137 135-145 MMOL/L Potassium Level 3.8 3.6-5.0 MMOL/L Chloride Level 100 98-107 MMOL/L Carbon Dioxide Level 26 21-32 MMOL/L Anion Gap 11 5-14 MMOL/L Blood Urea Nitrogen 10 7-18 MG/DL Creatinine 0.76 0.60-1.30 MG/DL Estimat Glomerular Filtration Rate > 60 BUN/Creatinine Ratio 13 Glucose Level 290 H 70-105 MG/DL Calcium Level 9.7 8.5-10.1 MG/DL Total Bilirubin 0.6 0.1-1.0 MG/DL Aspartate Amino Transf (AST/SGOT) 34 5-34 U/L Alanine Aminotransferase (ALT/SGPT) 62 H 0-55 U/L Alkaline Phosphatase 77 40-136 U/L Total Protein 7.8 6.4-8.2 GM/DL Albumin 4.6 H 3.2-4.5 GM/DL Thyroid Stimulating Hormone (TSH) 1.73 0.35-4.94 UIU/ML Free Thyroxine 1.13 0.70-1.48 NG/DL My Orders Orders - KORIN NEGRO APRN Cbc With Automated Diff (01/21/18 15:34) Comprehensive Metabolic Panel (01/21/18 15:34) Ua Culture If Indicated (01/21/18 15:34) Urine Bedside (01/21/18 15:34) Thyroid Stimulating Hormone (01/21/18 15:34) Free T4 (Free Thyroxine) (01/21/18 15:34) Ekg Tracing (01/21/18 15:34) Drug Screen Stat (Urine) (01/21/18 15:34) Ns Iv 1000 Ml (Sodium Chloride 0.9%) (01/21/18 16:00) Fibrin Degradation Products (01/21/18 15:53) Chest 1 View, Ap/Pa Only (01/21/18 15:53) Troponin I (01/21/18 15:53) Vital Signs/I&O 01/21/18 15:20 Temp 97.5 Pulse 89 Resp 18 B/P (MAP) 132/85 (101) Pulse Ox 95 Blood Pressure Mean: 101 Departure Impression Primary Impression: Palpitations Disposition: 01 HOME, SELF-CARE Condition: Stable Departure-Patient Inst. Decision time for Depature: 17:02 Referrals: NO,LOCAL PHYSICIAN (PCP/Family) Primary Care Physician Patient Instructions: Palpitations (DC) Add. Discharge Instructions: 1. Return to Er for any concerns 2. Follow up with your doctor on wednesday. All discharge instructions reviewed with patient and/or family. Voiced understanding. KORIN NEGRO APRN Jan 21, 2018 15:58
[2018-01-21] MEDS ORDERED: NS IV 1000 ML 1,000 ML IV SCH (16:00)
[2018-01-21 16:13] LABS: CLARITY,URINE CLEAR; COLOR,URINE YELLOW; GLUCOSE, URINE (UA) 4+ (NEGATIVE); PH,URINE 6.5 (5-9); PROTEIN,URINE 2+ (NEGATIVE)
[2018-01-21 16:14] LABS: BILIRUBIN,URINE NEGATIVE (NEGATIVE); KETONES,URINE NEGATIVE (NEGATIVE); LEUKOCYTE ESTERASE ,URINE NEGATIVE (NEGATIVE); NITRITE,URINE NEGATIVE (NEGATIVE); UROBILINOGEN,URINE NORMAL (NORMAL)
[2018-01-21 16:18] LABS: BASOPHILS % (AUTO) 1 % (0-10); EOSINOPHILS # (AUTO) 0.1 10^3/uL (0.0-0.3); EOSINOPHILS % (AUTO) 2 % (0-10); HEMATOCRIT 40 % (35-52); HEMOGLOBIN 13.9 G/DL (11.5-16.0); LYMPHOCYTES # (AUTO) 2.6 X 10^3 (1.0-4.0); LYMPHOCYTES % (AUTO) 30 % (12-44); MEAN CORPUSCULAR HEMOGLOBIN 28 PG (25-34); MEAN CORPUSCULAR HGB CONC 35 G/DL (32-36); MEAN CORPUSCULAR VOLUME 82 FL (80-99); MEAN PLATELET VOLUME 9.6 FL (7.4-10.4); MONOCYTES # (AUTO) 0.7 X 10^3 (0.0-1.0); MONOCYTES % (AUTO) 8 % (0-12); NEUTROPHILS # (AUTO) 5.1 X 10^3 (1.8-7.8); NEUTROPHILS % (AUTO) 60 % (42-75); PLATELET COUNT 378 10^3/uL (130-400); RED BLOOD COUNT 4.93 10^6/uL (4.35-5.85); RED CELL DISTRIBUTION WIDTH 13.2 % (10.0-14.5); WHITE BLOOD COUNT 8.5 10^3/uL (4.3-11.0)
[2018-01-21 16:19] LABS: BACTERIA,URINE NEGATIVE /HPF
[2018-01-21 16:38] LABS: ALANINE AMINOTRANSFERASE 62 U/L (0-55); ALBUMIN 4.6 GM/DL (3.2-4.5); ALKALINE PHOSPHATASE 77 U/L (40-136); BILIRUBIN,TOTAL 0.6 MG/DL (0.1-1.0); BUN/CREATININE RATIO 13; CALCIUM 9.7 MG/DL (8.5-10.1); CARBON DIOXIDE 26 MMOL/L (21-32); CHLORIDE 100 MMOL/L (98-107); CREATININE SERUM 0.76 MG/DL (0.60-1.30); GFR ESTIMATED > 60; GLUCOSE 290 MG/DL (70-105); POTASSIUM 3.8 MMOL/L (3.6-5.0); SODIUM 137 MMOL/L (135-145); TOTAL PROTEIN 7.8 GM/DL (6.4-8.2)
[2018-01-21 16:39] LABS: AMPHETAMINE SCREEN, URINE NEGATIVE (NEGATIVE); BARBITURATE SCREEN URINE NEGATIVE (NEGATIVE); BENZODIAZEPINES SCREEN URINE NEGATIVE (NEGATIVE); CANNABINOID SCREEN, URINE NEGATIVE (NEGATIVE); COCAINE SCREEN URINE NEGATIVE (NEGATIVE); METHADONE STAT NEGATIVE (NEGATIVE); METHAMPHETAMINE SCREEN URINE S NEGATIVE (NEGATIVE); OPIATE SCREEN URINE NEGATIVE (NEGATIVE); OXYCODONE STAT NEGATIVE (NEGATIVE); PROPOXYPHENE STAT NEGATIVE (NEGATIVE); TRICYCLIC ANTIDEPRESSANTS SCRE NEGATIVE (NEGATIVE)
--- NOTE | 2018-01-21 16:56 | Diagnostic Imaging Report ---
INDICATION: Heart racing, tachycardia. TECHNIQUE: Single-view chest at 04:30 p.m. CORRELATION STUDY: 11/24/2017. FINDINGS: Heart size and pulmonary vasculature overall generally stable, again with a limited depth of inspiration. There may be very minimal areas of perihilar atelectasis. No focal infiltrate. IMPRESSION: 1. Generally stable portable chest. Dictated by: Dictated on workstation # [id number]
[2018-01-21 17:00] LABS: FREE T4 (FREE THYROXINE) 1.13 NG/DL (0.70-1.48)
[2018-01-21 17:12] VITALS: BP 132/85
== END 2018-01-21 17:18 | disposition home or self-care (01) ==
LOC: EDUNIT# 14:48 → ER 14:50
DX: R00.2 Palpitations (principal); E78.00 Pure hypercholesterolemia, unspecified; I10 Essential (primary) hypertension; E11.9 Type 2 diabetes mellitus without complications; Z79.4 Long term (current) use of insulin; Z88.8 Allergy status to other drugs, medicaments and biological substances
CPT/HCPCS: 36415; 71045; 80053; 80306; 81000; 84439; 84443; 84484; 84703; 85025; 85379; 93005; 96360

== ENCOUNTER 2018-01-23 20:02 | Emergency (ER) | payer BC ==
[~2018-01-23] VITALS: Ht 162.6 cm; Wt 117.9 kg
[2018-01-23] MEDS ORDERED: inSUlin (REGULAR) HUMAN 1 UNIT/0.01 ML (CHARGE PER UNIT) SC ONE (20:30)
[2018-01-23 20:33] LABS: BILIRUBIN,URINE NEGATIVE (NEGATIVE); CLARITY,URINE CLEAR; COLOR,URINE YELLOW; GLUCOSE, URINE (UA) 4+ (NEGATIVE); KETONES,URINE NEGATIVE (NEGATIVE); LEUKOCYTE ESTERASE ,URINE 1+ (NEGATIVE); NITRITE,URINE NEGATIVE (NEGATIVE); PH,URINE 6 (5-9); PROTEIN,URINE 1+ (NEGATIVE); UROBILINOGEN,URINE NORMAL (NORMAL)
--- NOTE | 2018-01-23 20:34 | ED General ---
General Chief Complaint: Glucose Problems Stated Complaint: BLOOD SUGAR 456 Nursing Triage Note: PT PRESENTS TO ER WITH COMPLAINT OF HIGH BLOOD SUGAR. Nursing Sepsis Screen: No Definite Risk Source of Information: Patient Exam Limitations: No Limitations History of Present Illness Date Seen by Provider: Jan 23, 2018 Time Seen by Provider: 20:15 Initial Comments Patient presents to the ER by private conveyance with a chief complaint she's having blood sugar in the 350s range. She says this morning was doing much better about 220. She's been taking her triciba and adjusting her diet pattern. She was seen about 4 days ago by this practitioner and 2 days ago by another practitioner in this ER about blood sugar. She is on long-acting but no short acting. She sees an roof bolter. She has PCO S. She has called her roof bolter couple times are not elevated and yet. She went saw her primary care doctor and they agreed with the short acting insulin that she did not get any picked up from the pharmacy because insurance doesn't pay for it. She says she still working on that. She did not ask for samples from her primary care provider. She has not started the short acting insulin therefore. She's having no headache, nausea, abdominal pain, shortness of breath, chest pain, rash, fevers, dysuria or constipation. Allergies and Home Medications Allergies Coded Allergies: pseudoephedrine (Unverified Adverse Reaction, Unknown, 11/24/17) PT STATES CAUSES VOMITING triprolidine (Unverified Adverse Reaction, Unknown, 11/24/17) PT STATES CAUSES VOMITING Home Medications Cefdinir 300 Mg Capsule, 300 MG PO BID Prescribed by: MAGALI ALVAREZ on 12/23/17 1544 Cefdinir 300 Mg Capsule, 300 MG PO Twice a day Prescribed by: GISSEL DOMINGO on 01/13/18 2155 Insulin Aspart 100 Unit/1 Ml Susp, 4 UNIT SQ AC Glucose 60-180 take 0 units 181-200 4u 201-250 6 u 251-300 8 u 301-350 10 u 351-400 12 u Greater than 401 call provider Prescribed by: MADELIN CASTANEDA on 01/14/18 1926 Patient Home Medication List Home Medication List Reviewed: Yes Review of Systems Constitutional: No chills, No diaphoresis EENTM: No hearing loss, No ear pain Respiratory: No cough, No short of breath Cardiovascular: No chest pain, No palpitations Gastrointestinal: No abdominal pain, No constipation, No diarrhea, No nausea, No vomiting Genitourinary: No discharge, No dysuria : No Past Ryoosrc-Zbcvuq-Txqfcv Hx Patient Social History Alcohol Use: Denies Use Recreational Drug Use: No Smoking Status: Never a Smoker 2nd Hand Smoke Exposure: No Recent Foreign Travel: No Contact w/Someone Who Travel: No Recent Infectious Disease Expo: No Recent Hopitalizations: No Immunizations Up To Date Tetanus Booster (TDap): Unknown PED Vaccines UTD: Yes Seasonal Allergies Seasonal Allergies: No Past Medical History Surgeries: No Respiratory: No Cardiac: Yes High Cholesterol, Hypertension Neurological: No Genitourinary: No Gastrointestinal: No Musculoskeletal: No Endocrine: Yes Diabetes, Insulin dep HEENT: No Cancer: No Psychosocial: No Integumentary: No Blood Disorders: No Adverse Reaction/Blood Tranf: No Physical Exam Vital Signs Vital Signs - First Documented 01/23/18 20:09 Temp 98.0 Pulse 88 Resp 20 B/P (MAP) 136/92 (107) Pulse Ox 96 O2 Delivery Room Air Capillary Refill : Less Than 3 Seconds General Appearance: No Apparent Distress, WD/WN Eyes: Bilateral Eye Normal Inspection, Bilateral Eye PERRL, Bilateral Eye EOMI HEENT: PERRL/EOMI, TMs Normal, Normal ENT Inspection, Pharynx Normal Respiratory: Chest Non Tender, Lungs Clear, Normal Breath Sounds, No Accessory Muscle Use, No Respiratory Distress Cardiovascular: Regular Rate, Rhythm, Normal Peripheral Pulses Gastrointestinal: Non Tender, Soft Skin: Normal Color, Warm/Dry Progress/Results/Core Measures Suspected Sepsis Recent Fever Within 48 Hours: No Infection Criteria Present: None New/Unexplained Altered Menta: No Sepsis Screen: No Definite Risk SIRS Temperature:98.0 Pulse: 88 Respiratory Rate: 20 Blood Pressure 136 /92 Mean: 107 Results/Orders Lab Results Laboratory Tests Test 01/23/18 20:18 01/23/18 20:23 Range/Units Urine Color YELLOW Urine Clarity CLEAR Urine pH 6 5-9 Urine Specific [place] 1.010 L 1.016-1.022 Urine Protein 1+ H NEGATIVE Urine Glucose (UA) 4+ H NEGATIVE Urine Ketones NEGATIVE NEGATIVE Urine Nitrite NEGATIVE NEGATIVE Urine Bilirubin NEGATIVE NEGATIVE Urine Urobilinogen NORMAL NORMAL MG/DL Urine Leukocyte Esterase 1+ H NEGATIVE Urine RBC (Auto) NEGATIVE NEGATIVE Urine RBC NONE /HPF Urine WBC 0-2 /HPF Urine Squamous Epithelial Cells 0-2 /HPF Urine Renal Epithelial Cells NONE /HPF Urine Crystals NONE /LPF Urine Bacteria NEGATIVE /HPF Urine Casts NONE /LPF Urine Mucus NEGATIVE /LPF Urine Culture Indicated NO Urine Test NEGATIVE NEGATIVE Glucometer 350 H 70-110 MG/DL My Orders Orders - MADELIN CASTANEDA Ua Culture If Indicated (01/23/18 20:22) Hcg,Qualitative Urine (01/23/18 20:22) Accucheck Stat ONCE (01/23/18 20:22) Insulin (Regular) Human (Humulin R (Per (01/23/18 20:30) Medications Given in ED Current Medications Medications Dose Ordered Sig/Holly Route Start Time Stop Time Status Last Admin Dose Admin Insulin Human Regular 15 unit ONCE ONCE SC 01/23/18 20:30 01/23/18 20:31 DC 01/23/18 20:41 15 UNIT Vital Signs/I&O 01/23/18 20:09 Temp 98.0 Pulse 88 Resp 20 B/P (MAP) 136/92 (107) Pulse Ox 96 O2 Delivery Room Air Capillary Refill : Less Than 3 Seconds Blood Pressure Mean: 107 Point of Care Testing Finger Stick Blood Glucose: 350 Progress Note : Time: 20:34 Progress Note Patient's having no specific complaint other than just her blood sugar being high. Advised her tomorrow morning to call her primary care doctor's office to get some help getting her insurance company to pay for short acting insulin. We' ll give her 15 units of regular insulin tonight and instructed her to increase the long-acting insulin by 15 units tonight only until she sees a primary care doctor. We'll obtain urinalysis and hCG. Departure Impression Primary Impression: Hyperglycemia due to type 2 diabetes mellitus Qualified Codes: E11.65 - Type 2 diabetes mellitus with hyperglycemia Disposition: 01 HOME, SELF-CARE Condition: Stable Departure-Patient Inst. Decision time for Depature: 20:58 Referrals: CHRIS SAGE APRN (PCP/Family) Primary Care Physician Patient Instructions: Diabetes Type 2 (DC) Add. Discharge Instructions: Increase your long-acting insulin by 15 units tonight only. Call your primary care doctor in the morning and see if they have samples or they can help you approved to get your short acting insulin paid for by insurance. All discharge instructions reviewed with patient and/or family. Voiced understanding. MADELIN CASTANEDA Jan 23, 2018 20:34
[2018-01-23 20:42] LABS: WBC,URINE 0-2 /HPF
[2018-01-23 20:43] LABS: BACTERIA,URINE NEGATIVE /HPF; SQUAMOUS EPITHELIAL CELL,UR 0-2 /HPF
[2018-01-23 21:03] VITALS: BP 136/92
== END 2018-01-23 21:20 | disposition home or self-care (01) ==
LOC: EDUNIT# 20:02 → ER 20:03
DX: E11.65 Type 2 diabetes mellitus with hyperglycemia (principal); E78.00 Pure hypercholesterolemia, unspecified; I10 Essential (primary) hypertension; Z88.8 Allergy status to other drugs, medicaments and biological substances; Z79.4 Long term (current) use of insulin
CPT/HCPCS: 81000; 82962; 84703; 96372; 99284

== ENCOUNTER 2018-02-04 14:48 | Emergency (ER) | payer BC ==
[~2018-02-04] VITALS: Ht 162.6 cm; Wt 117.0 kg
[2018-02-04 15:30] LABS: BASOPHILS # (AUTO) 0.1 10^3/uL (0.0-0.1); BASOPHILS % (AUTO) 1 % (0-10); EOSINOPHILS # (AUTO) 0.2 10^3/uL (0.0-0.3); EOSINOPHILS % (AUTO) 2 % (0-10); HEMATOCRIT 37 % (35-52); HEMOGLOBIN 12.8 G/DL (11.5-16.0); LYMPHOCYTES # (AUTO) 2.2 X 10^3 (1.0-4.0); LYMPHOCYTES % (AUTO) 25 % (12-44); MEAN CORPUSCULAR HEMOGLOBIN 28 PG (25-34); MEAN CORPUSCULAR HGB CONC 34 G/DL (32-36); MEAN CORPUSCULAR VOLUME 81 FL (80-99); MEAN PLATELET VOLUME 9.7 FL (7.4-10.4); MONOCYTES # (AUTO) 0.6 X 10^3 (0.0-1.0); MONOCYTES % (AUTO) 7 % (0-12); NEUTROPHILS # (AUTO) 5.8 X 10^3 (1.8-7.8); NEUTROPHILS % (AUTO) 66 % (42-75); PLATELET COUNT 346 10^3/uL (130-400); RED BLOOD COUNT 4.61 10^6/uL (4.35-5.85); RED CELL DISTRIBUTION WIDTH 12.7 % (10.0-14.5); WHITE BLOOD COUNT 8.8 10^3/uL (4.3-11.0)
[2018-02-04] MEDS ORDERED: NS IV 1000 ML 1,000 ML IV SCH (15:30)
[2018-02-04 15:44] LABS: ALANINE AMINOTRANSFERASE 37 U/L (0-55); ALKALINE PHOSPHATASE 81 U/L (40-136); BILIRUBIN,TOTAL 0.4 MG/DL (0.1-1.0); BUN/CREATININE RATIO 14; CALCIUM 9.6 MG/DL (8.5-10.1); CARBON DIOXIDE 20 MMOL/L (21-32); CHLORIDE 100 MMOL/L (98-107); CREATININE SERUM 0.83 MG/DL (0.60-1.30); GFR ESTIMATED > 60; GLUCOSE 364 MG/DL (70-105); MAGNESIUM 1.8 MG/DL (1.8-2.4); POTASSIUM 3.9 MMOL/L (3.6-5.0); SODIUM 134 MMOL/L (135-145); TOTAL PROTEIN 6.7 GM/DL (6.4-8.2)
[2018-02-04 15:50] LABS: MYOGLOBIN SERUM 13.1 NG/ML (10.0-92.0)
--- NOTE | 2018-02-04 15:59 | Diagnostic Imaging Report ---
INDICATION: Palpitations and tachycardia. TIME OF EXAM: 3:41 p.m. COMPARISON: Correlation is made with prior study from 01/21/2018. FINDINGS: The heart size is normal. The pulmonary vascularity is unremarkable. The lungs are clear. No infiltrate, effusion or pneumothorax is detected. IMPRESSION: No acute cardiopulmonary process is detected. Dictated by: Dictated on workstation # [id number]
--- NOTE | 2018-02-04 17:02 | ED Cardiac General ---
History of Present Illness General Chief Complaint: Cardiac/General Problems Stated Complaint: HEART RACING Nursing Triage Note: pt preseents to ed with complaints of palpitations, rapid heart rate, and intermittent chest tightness starting this am. Source: patient Exam Limitations: no limitations History of Present Illness Date Seen by Provider: Feb 04, 2018 Time Seen by Provider: 15:20 Initial Comments Patient is a 32-year-old female who presents to the emergency room with complaints of of feeling like her heart is beating fast that started this morning. She reports that she's had several episodes of this before and she has been told it is either anxiety or dehydration. She denies chest pain, shortness of breath, dizziness, nausea, vomiting. Timing/Duration: 4-6 hours Severity: mild Activities at Onset: none Prior CP/Workup: no prior chest pain Associated Systoms: Denies Symptoms Allergies and Home Medications Allergies Coded Allergies: pseudoephedrine (Unverified Adverse Reaction, Unknown, 11/24/17) PT STATES CAUSES VOMITING triprolidine (Unverified Adverse Reaction, Unknown, 11/24/17) PT STATES CAUSES VOMITING Home Medications Cefdinir 300 Mg Capsule, 300 MG PO BID Prescribed by: MAGALI ALVAREZ on 12/23/17 1544 Cefdinir 300 Mg Capsule, 300 MG PO Twice a day Prescribed by: GISSEL DOMINGO on 01/13/18 2155 Insulin Aspart 100 Unit/1 Ml Susp, 4 UNIT SQ AC Glucose 60-180 take 0 units 181-200 4u 201-250 6 u 251-300 8 u 301-350 10 u 351-400 12 u Greater than 401 call provider Prescribed by: MADELIN CASTANEDA on 01/14/18 1926 Patient Home Medication List Home Medication List Reviewed: Yes Review of Systems Constitutional: see HPI; No chills, No diaphoresis, No dizziness EENTM: No Symptoms Reported Respiratory: See HPI; Denies Shortness of Air, Denies SOA at Rest, Denies Wheezing Cardiovascular: See HPI; Denies Chest Pain, Denies Edema; Irregular Heart Rate ; Denies Lightheadedness; Palpitations; Denies Syncope Gastrointestinal: See HPI; Denies Abdomen Distended, Denies Abdominal Pain, Denies Blood Streaked Stools Genitourinary: See HPI; Denies Burning, Denies Discharge Musculoskeletal: see HPI; No back pain, No gout, No joint pain Skin: see HPI; No change in color, No change in hair/nails Psychiatric/Neurological: See HPI; Denies Anxiety, Denies Depressed, Denies Emotional Problems Endocrine: See HPI; Denies Excessive Sweating, Denies Flushing Hematologic/Lymphatic: See HPI; Denies Anemia All Other Systems Reviewed Negative Unless Noted: Yes Past Lbybndy-Tepjrh-Zqdbdi Hx Past Med/Social Hx: Reviewed Nursing Past Med/Soc Hx Patient Social History Alcohol Use: Denies Use Recreational Drug Use: No Smoking Status: Never a Smoker 2nd Hand Smoke Exposure: No Recent Foreign Travel: No Contact w/Someone Who Travel: No Recent Infectious Disease Expo: No Recent Hopitalizations: No Physical Abuse: No Sexual Abuse: No Fear: No Immunizations Up To Date Tetanus Booster (TDap): Unknown PED Vaccines UTD: Yes Seasonal Allergies Seasonal Allergies: No Past Medical History Surgeries: Yes (wisdom teeth) Respiratory: No Cardiac: Yes High Cholesterol, Hypertension Neurological: No Genitourinary: No Gastrointestinal: No Musculoskeletal: No Endocrine: Yes Diabetes, Insulin dep HEENT: No Cancer: No Psychosocial: No Nursing Suicide Risk Score: 0 Integumentary: No Blood Disorders: No Adverse Reaction/Blood Tranf: No Family Medical History Reviewed Nursing Family Hx Physical Exam Vital Signs Vital Signs - First Documented 02/04/18 15:19 Temp 96.9 Pulse 98 Resp 16 B/P (MAP) 156/97 (116) Pulse Ox 97 Capillary Refill : Less Than 3 Seconds Height, Weight, BMI Height: 5'4.00" Weight: 258lbs. 0oz. [id number]; BMI Method:Stated General Appearance: No Apparent Distress, WD/WN HEENT: PERRL/EOMI, TMs Normal, Normal ENT Inspection, Pharynx Normal Neck: Full Range of Motion, Normal Inspection, Non Tender, Supple Respiratory: Chest Non Tender, Lungs Clear, Normal Breath Sounds, No Accessory Muscle Use, No Respiratory Distress Cardiovascular: Regular Rate, Rhythm, No Edema, No Gallop, No JVD, No Murmur, Normal Peripheral Pulses Gastrointestinal: Normal Bowel Sounds, No Organomegaly, No Pulsatile Mass, Non Tender, Soft Extremity: Normal Capillary Refill, Normal Inspection, Normal Range of Motion, Non Tender, No Calf Tenderness Neurologic/Psychiatric: Alert, Oriented x3, Normal Mood/Affect Skin: Normal Color, Warm/Dry Lymphatic: No Adenopathy Progress/Results/Core Measures Results/Orders Lab Results Laboratory Tests Test 02/04/18 15:12 02/04/18 16:34 02/04/18 17:10 02/04/18 17:48 Range/Units White Blood Count 8.8 4.3-11.0 10^3/uL Red Blood Count 4.61 4.35-5.85 10^6/uL Hemoglobin 12.8 11.5-16.0 G/DL Hematocrit 37 35-52 % Mean Corpuscular Volume 81 80-99 FL Mean Corpuscular Hemoglobin 28 25-34 PG Mean Corpuscular Hemoglobin Concent 34 32-36 G/DL Red Cell Distribution Width 12.7 10.0-14.5 % Platelet Count 346 130-400 10^3/uL Mean Platelet Volume 9.7 7.4-10.4 FL Neutrophils (%) (Auto) 66 42-75 % Lymphocytes (%) (Auto) 25 12-44 % Monocytes (%) (Auto) 7 0-12 % Eosinophils (%) (Auto) 2 0-10 % Basophils (%) (Auto) 1 0-10 % Neutrophils # (Auto) 5.8 1.8-7.8 X 10^3 Lymphocytes # (Auto) 2.2 1.0-4.0 X 10^3 Monocytes # (Auto) 0.6 0.0-1.0 X 10^3 Eosinophils # (Auto) 0.2 0.0-0.3 10^3/uL Basophils # (Auto) 0.1 0.0-0.1 10^3/uL Sodium Level 134 L 135-145 MMOL/L Potassium Level 3.9 3.6-5.0 MMOL/L Chloride Level 100 98-107 MMOL/L Carbon Dioxide Level 20 L 21-32 MMOL/L Anion Gap 14 5-14 MMOL/L Blood Urea Nitrogen 12 7-18 MG/DL Creatinine 0.83 0.60-1.30 MG/DL Estimat Glomerular Filtration Rate > 60 BUN/Creatinine Ratio 14 Glucose Level 364 H 70-105 MG/DL Calcium Level 9.6 8.5-10.1 MG/DL Magnesium Level 1.8 1.8-2.4 MG/DL Total Bilirubin 0.4 0.1-1.0 MG/DL Aspartate Amino Transf (AST/SGOT) 32 5-34 U/L Alanine Aminotransferase (ALT/SGPT) 37 0-55 U/L Alkaline Phosphatase 81 40-136 U/L Myoglobin 13.1 10.0-92.0 NG/ML Troponin I < 0.30 <0.30 NG/ML Total Protein 6.7 6.4-8.2 GM/DL Albumin 4.0 3.2-4.5 GM/DL Glucometer 309 H 277 H 70-110 MG/DL Urine Color YELLOW Urine Clarity CLEAR Urine pH 6 5-9 Urine Specific [place] 1.015 L 1.016-1.022 Urine Protein 2+ H NEGATIVE Urine Glucose (UA) 4+ H NEGATIVE Urine Ketones NEGATIVE NEGATIVE Urine Nitrite NEGATIVE NEGATIVE Urine Bilirubin NEGATIVE NEGATIVE Urine Urobilinogen NORMAL NORMAL MG/DL Urine Leukocyte Esterase 1+ H NEGATIVE Urine RBC (Auto) NEGATIVE NEGATIVE Urine RBC NONE /HPF Urine WBC NONE /HPF Urine Crystals NONE /LPF Urine Bacteria TRACE /HPF Urine Casts NONE /LPF Urine Mucus NEGATIVE /LPF Urine Culture Indicated NO Urine Opiates Screen NEGATIVE NEGATIVE Urine Oxycodone Screen NEGATIVE NEGATIVE Urine Methadone Screen NEGATIVE NEGATIVE Urine Propoxyphene Screen NEGATIVE NEGATIVE Urine Barbiturates Screen NEGATIVE NEGATIVE Ur Tricyclic Antidepressants Screen NEGATIVE NEGATIVE Urine Phencyclidine Screen NEGATIVE NEGATIVE Urine Amphetamines Screen NEGATIVE NEGATIVE Urine Methamphetamines Screen NEGATIVE NEGATIVE Urine Benzodiazepines Screen NEGATIVE NEGATIVE Urine Cocaine Screen NEGATIVE NEGATIVE Urine Cannabinoids Screen NEGATIVE NEGATIVE My Orders Orders - PLACIDO RODRIGUEZ Cbc With Automated Diff (02/04/18 15:24) Magnesium (02/04/18 15:24) Chest 1 View, Ap/Pa Only (02/04/18 15:24) Ekg Tracing (02/04/18 15:24) Cardiac Profile 1 (02/04/18 15:24) Comprehensive Metabolic Panel (02/04/18 15:24) Myoglobin Serum (02/04/18 15:24) O2 (02/04/18 15:24) Monitor-Rhythm Ecg Trace Only (02/04/18 15:24) Saline Lock/Iv-Start (02/04/18 15:24) Ns Iv 1000 Ml (Sodium Chloride 0.9%) (02/04/18 15:30) Ua Culture If Indicated (02/04/18 15:29) Drug Screen Stat (Urine) (02/04/18 15:29) Vital Signs/I&O 02/04/18 02/04/18 15:19 17:56 Temp 96.9 Pulse 98 87 Resp 16 20 B/P (MAP) 156/97 (116) 133/87 Pulse Ox 97 98 02/05/18 00:00 Intake Total 1000 ml Balance 1000 ml Blood Pressure Mean: 116 Progress Progress Note : Time: 17:30 Progress Note Patient's blood sugars come down over the course of her stay in with IV fluids. She reports that she has not taken her medications today and she is a non- insulin-dependent type II diabetic. Her vital signs have been within normal limits at this visit. She is no longer feeling like she is having palpitations. She agrees with close follow up with [facility] in [place] and taking her medications as she gets home. EKG : EKG Time: 15:02 Rate: 93 Rhythm: Normal Sinus Intervals: Normal ECG Comparisson: Unchanged Comment EKG was reviewed by myself and Dr. Beckford. Diagnostic Imaging Diagonstic Imaging: Xray Plain Films/CT/US/NM/MRI: chest Comments NAME: MARII HOLLAND [employer] REC#: [id number] PT STATUS: REG ER : 1985 PHYSICIAN: PLACIDO RODRIGUEZ ADMIT DATE: 02/04/18/ER Signed Date of Exam: 02/04/18 CHEST 1 VIEW, AP/PA ONLY INDICATION: Palpitations and tachycardia. TIME OF EXAM: 3:41 p.m. COMPARISON: Correlation is made with prior study from 01/21/2018. FINDINGS: The heart size is normal. The pulmonary vascularity is unremarkable. The lungs are clear. No infiltrate, effusion or pneumothorax is detected. IMPRESSION: No acute cardiopulmonary process is detected. Dictated by: Dictated on workstation # [id number] Dict: 02/04/18 1557 Trans: 02/04/18 1600 Interpreted by: STEPHY LIANG MD Electronically signed by: STEPHY LIANG MD 02/04/18 1600 Reviewed: Reviewed by Me Departure Impression Primary Impression: Palpitations Disposition: 01 HOME, SELF-CARE Condition: Stable/Unchanged Departure-Patient Inst. Referrals: CHRIS SAGE [employer] DES[employer] DRAFTER (PCP/Family) Primary Care Physician Patient Instructions: Palpitations (DC) Add. Discharge Instructions: Follow-up with your doctor on Wednesday. Return back to the emergency room for any return in palpitations, feeling like her heart is racing, chest pain, or any other concerns as needed. All discharge instructions reviewed with patient and/ or family. Voiced understanding. PLACIDO RODRIGUEZ Feb 04, 2018 17:02
[2018-02-04 17:15] LABS: BILIRUBIN,URINE NEGATIVE (NEGATIVE); CLARITY,URINE CLEAR; COLOR,URINE YELLOW; GLUCOSE, URINE (UA) 4+ (NEGATIVE); KETONES,URINE NEGATIVE (NEGATIVE); LEUKOCYTE ESTERASE ,URINE 1+ (NEGATIVE); NITRITE,URINE NEGATIVE (NEGATIVE); PH,URINE 6 (5-9); PROTEIN,URINE 2+ (NEGATIVE); UROBILINOGEN,URINE NORMAL (NORMAL)
[2018-02-04 17:35] LABS: BACTERIA,URINE TRACE /HPF
[2018-02-04 17:43] LABS: AMPHETAMINE SCREEN, URINE NEGATIVE (NEGATIVE); BARBITURATE SCREEN URINE NEGATIVE (NEGATIVE); BENZODIAZEPINES SCREEN URINE NEGATIVE (NEGATIVE); CANNABINOID SCREEN, URINE NEGATIVE (NEGATIVE); COCAINE SCREEN URINE NEGATIVE (NEGATIVE); METHADONE STAT NEGATIVE (NEGATIVE); METHAMPHETAMINE SCREEN URINE S NEGATIVE (NEGATIVE); OPIATE SCREEN URINE NEGATIVE (NEGATIVE); OXYCODONE STAT NEGATIVE (NEGATIVE); PROPOXYPHENE STAT NEGATIVE (NEGATIVE); TRICYCLIC ANTIDEPRESSANTS SCRE NEGATIVE (NEGATIVE)
[2018-02-04 17:56] VITALS: BP 133/87
[2018-02-05] MEDS ORDERED: METO-333 PO ×2 (18:42)
[2018-02-05] MEDS ORDERED: INSU200I4 SQ (18:45)
[2018-02-05] MEDS ORDERED: CLON0.1T PO (18:45)
[2018-02-05] MEDS ORDERED: INSU100I40 SQ (18:45)
[2018-02-05] MEDS ORDERED: LOSA100T28 PO (18:45)
[2018-02-05] MEDS ORDERED: HYDR25TA4 PO (18:48)
[2018-02-05] MEDS ORDERED: METF500T8 PO (18:48)
== END 2018-02-04 17:56 | disposition home or self-care (01) ==
LOC: EDUNIT# 14:48 → ER 14:49
DX: R00.2 Palpitations (principal); E78.00 Pure hypercholesterolemia, unspecified; I10 Essential (primary) hypertension; E11.9 Type 2 diabetes mellitus without complications; Z88.8 Allergy status to other drugs, medicaments and biological substances; Z79.4 Long term (current) use of insulin
CPT/HCPCS: 36415; 71045; 80053; 80306; 81000; 82962; 83735; 83874; 84484; 85025; 93005; 93041; 96360

== ENCOUNTER 2018-02-05 16:08 | Observation (INO) | payer BC ==
[~2018-02-05] VITALS: Ht 162.6 cm; Wt 115.8 kg
[2018-02-05] MEDS ORDERED: ASPIRIN 81 MG CHEW (CHILDREN'S ASA) PO ONE (16:15)
--- NOTE | 2018-02-05 16:20 | ED Chest Pain ---
General Stated Complaint: CHEST PAIN,HEARTS RACING Source: patient Exam Limitations: no limitations History of Present Illness Date Seen by Provider: Feb 05, 2018 Time Seen by Provider: 16:15 Initial Comments Patient is a 32-year-old female who presents with chest pain, palpitations, she states that "it feels like my heart is going to beat out of my chest". She was seen yesterday for for palpitations and was told to come back if she developed pain. She reports that the palpitations woke her up at 5:00 this morning and the pain started 1 hour prior to arrival. She says she drove directly here when the pain started. She denies shortness of breath, nausea, vomiting, faintness, dizziness. Timing/Duration: 1 hour Severity/Quality: moderate Location: substernal Radiation: no radiation Activities at Onset: none ASA po COMMODITY ANALYST: No NTG SL COMMODITY ANALYST: No Associated Symptoms: denies symptoms Allergies and Home Medications Allergies Coded Allergies: pseudoephedrine (Verified Adverse Reaction, Unknown, 02/05/18) PT STATES CAUSES VOMITING triprolidine (Verified Adverse Reaction, Unknown, 02/05/18) PT STATES CAUSES VOMITING Home Medications Clonidine HCl 0.1 Mg Tablet, 0.1 MG PO BID, (Reported) Hydrochlorothiazide 25 Mg Tablet, 25 MG PO DAILY, (Reported) Insulin Aspart (Niacinamide) 100 Unit/1 Ml Insuln.pen, 17 UNITS SQ AC, (Reported ) Insulin Degludec 200 Unit/1 Ml Insuln.pen, 70 UNITS SQ HS, (Reported) Losartan Potassium 100 Mg Tablet, 100 MG PO 1900, (Reported) Metformin HCl 500 Mg Tab.er.24h, 1,000 MG PO BID, (Reported) take 2 (500 mg) tablets twice daily Metoprolol Tartrate 25 Mg Tablet, 50 MG PO 0900, (Reported) take 2 (25 mg) tablets every morning Metoprolol Tartrate 25 Mg Tablet, 25 MG PO 1900, (Reported) Potassium Chloride 10 Meq Capsule.er, 10 MEQ PO DAILY Prescribed by: MESHA SINGH on 02/07/18 1510 Patient Home Medication List Home Medication List Reviewed: Yes Review of Systems Constitutional: see HPI; No chills, No diaphoresis, No dizziness EENTM: No Symptoms Reported Respiratory: See HPI; Denies Cough, Denies Shortness of Air, Denies SOA at Rest , Denies Wheezing Cardiovascular: See HPI, Chest Pain (chest pain started 1 hour prior to arrival ); Denies Irregular Heart Rate, Denies Lightheadedness; Palpitations Gastrointestinal: See HPI; Denies Abdomen Distended, Denies Abdominal Pain, Denies Nausea, Denies Vomiting Genitourinary: See HPI; Denies Burning Musculoskeletal: see HPI; No back pain, No gout Skin: see HPI; No change in color, No change in hair/nails Psychiatric/Neurological: See HPI; Denies Anxiety, Denies Depressed, Denies Emotional Problems Endocrine: See HPI; Denies Excessive Sweating, Denies Flushing Hematologic/Lymphatic: See HPI; Denies Anemia, Denies Blood Clots All Other Systems Reviewed Negative Unless Noted: Yes Past Ymaxyyp-Jbiume-Oqlrmm Hx Past Med/Social Hx: Reviewed Nursing Past Med/Soc Hx Patient Social History 2nd Hand Smoke Exposure: No Recent Foreign Travel: No Contact w/Someone Who Travel: No Recent Hopitalizations: No Immunizations Up To Date Tetanus Booster (TDap): Unknown PED Vaccines UTD: Yes Seasonal Allergies Seasonal Allergies: No Past Medical History Surgeries: Yes (wisdom teeth) Respiratory: No Cardiac: Yes High Cholesterol, Hypertension Neurological: No Genitourinary: No Gastrointestinal: No Musculoskeletal: No Endocrine: Yes Diabetes, Insulin dep HEENT: No Cancer: No Psychosocial: No Integumentary: No Blood Disorders: No Adverse Reaction/Blood Tranf: No Family Medical History Reviewed Nursing Family Hx Physical Exam Vital Signs Vital Signs - First Documented 02/05/18 02/05/18 16:23 16:34 Temp 97.8 Pulse 91 Resp 20 B/P (MAP) 143/98 (113) Pulse Ox 97 O2 Delivery Room Air Capillary Refill : Height, Weight, BMI Height: 5'4.00" Weight: 258lbs. 0oz. 117.082702iq; BMI Method:Stated General Appearance: No Apparent Distress, WD/WN HEENT: PERRL/EOMI, TMs Normal, Normal ENT Inspection, Pharynx Normal Neck: Full Range of Motion, Normal Inspection, Non Tender, Supple Respiratory: Chest Non Tender, Lungs Clear, Normal Breath Sounds, No Accessory Muscle Use, No Respiratory Distress Cardiovascular: Regular Rate, Rhythm, No Edema, No Gallop, No JVD, No Murmur, Normal Peripheral Pulses Gastrointestinal: Normal Bowel Sounds, No Organomegaly, No Pulsatile Mass, Non Tender, Soft Extremity: Normal Capillary Refill, Normal Inspection, Normal Range of Motion, Non Tender, No Calf Tenderness Neurologic/Psychiatric: Alert, Oriented x3, Normal Mood/Affect Skin: Normal Color, Warm/Dry Lymphatic: No Adenopathy Progress/Results/Core Measures Results/Orders Lab Results Laboratory Tests Test 02/05/18 16:20 Range/Units White Blood Count 8.7 4.3-11.0 10^3/uL Red Blood Count 4.53 4.35-5.85 10^6/uL Hemoglobin 12.9 11.5-16.0 G/DL Hematocrit 37 35-52 % Mean Corpuscular Volume 82 80-99 FL Mean Corpuscular Hemoglobin 29 25-34 PG Mean Corpuscular Hemoglobin Concent 35 32-36 G/DL Red Cell Distribution Width 12.5 10.0-14.5 % Platelet Count 337 130-400 10^3/uL Mean Platelet Volume 9.5 7.4-10.4 FL Neutrophils (%) (Auto) 66 42-75 % Lymphocytes (%) (Auto) 25 12-44 % Monocytes (%) (Auto) 8 0-12 % Eosinophils (%) (Auto) 2 0-10 % Basophils (%) (Auto) 1 0-10 % Neutrophils # (Auto) 5.7 1.8-7.8 X 10^3 Lymphocytes # (Auto) 2.1 1.0-4.0 X 10^3 Monocytes # (Auto) 0.7 0.0-1.0 X 10^3 Eosinophils # (Auto) 0.1 0.0-0.3 10^3/uL Basophils # (Auto) 0.1 0.0-0.1 10^3/uL Prothrombin Time 13.1 12.2-14.7 SEC INR Comment 1.0 0.8-1.4 Activated Partial Thromboplast Time 24 24-35 SEC D-Dimer < 0.27 0.00-0.49 UG/ML Sodium Level 137 135-145 MMOL/L Potassium Level 3.7 3.6-5.0 MMOL/L Chloride Level 102 98-107 MMOL/L Carbon Dioxide Level 23 21-32 MMOL/L Anion Gap 12 5-14 MMOL/L Blood Urea Nitrogen 7 7-18 MG/DL Creatinine 0.81 0.60-1.30 MG/DL Estimat Glomerular Filtration Rate > 60 BUN/Creatinine Ratio 9 Glucose Level 367 H 70-105 MG/DL Calcium Level 9.5 8.5-10.1 MG/DL Magnesium Level 1.9 1.8-2.4 MG/DL Total Bilirubin 0.5 0.1-1.0 MG/DL Aspartate Amino Transf (AST/SGOT) 19 5-34 U/L Alanine Aminotransferase (ALT/SGPT) 33 0-55 U/L Alkaline Phosphatase 84 40-136 U/L Myoglobin 13.4 10.0-92.0 NG/ML Troponin I < 0.30 <0.30 NG/ML B-Type Natriuretic Peptide 39.2 <100.0 PG/ML Total Protein 7.1 6.4-8.2 GM/DL Albumin 4.1 3.2-4.5 GM/DL Amylase Level 40 25-125 U/L Lipase 38 8-78 U/L Serum Test, Qualitative NEGATIVE NEGATIVE My Orders Orders - PLACIDO RODRIGUEZ Cbc With Automated Diff (02/05/18 16:13) Magnesium (02/05/18 16:13) Chest 1 View, Ap/Pa Only (02/05/18 16:13) Ekg Tracing (02/05/18 16:13) Cardiac Profile 1 (02/05/18 16:13) Comprehensive Metabolic Panel (02/05/18 16:13) Myoglobin Serum (02/05/18 16:13) Protime With Inr (02/05/18 16:13) Partial Thromboplastin Time (02/05/18 16:13) O2 (02/05/18 16:13) Monitor-Rhythm Ecg Trace Only (02/05/18 16:13) Lipid Panel (02/06/18 06:00) Aspirin Chewable Tablet (Baby Aspirin Ch (02/05/18 16:15) Saline Lock/Iv-Start (02/05/18 16:13) Lipase (02/05/18 16:13) Amylase (02/05/18 16:13) BNP (02/05/18 16:13) Fibrin Degradation Products (02/05/18 17:04) Medications Given in ED Vital Signs/I&O 02/05/18 02/05/18 16:23 16:34 Temp 97.8 Pulse 91 Resp 20 B/P (MAP) 143/98 (113) Pulse Ox 97 O2 Delivery Room Air EKG : EKG Time: 16:11 Rate: 89 Rhythm: Normal Sinus Intervals: Normal ECG Comparisson: Unchanged Diagnostic Imaging Diagonstic Imaging: Xray Plain Films/CT/US/NM/MRI: chest Comments NAME: MARII HOLLAND [facility] REC#: [id number] PT STATUS: REG ER : 1985 PHYSICIAN: PLACIDO RODRIGUEZ ADMIT DATE: 02/05/18/ER Signed Date of Exam: 02/05/18 CHEST 1 VIEW, AP/PA ONLY INDICATION: Racing heart and chest pain. TIME OF EXAM: 4:43 p.m. COMPARISON: Correlation is made with prior study from one day earlier. FINDINGS: The heart size is stable. The lungs are clear. The pulmonary vascularity is normal. No infiltrate, effusion or pneumothorax is seen. IMPRESSION: Stable chest. No acute cardiopulmonary process is detected. Dictated by: Dictated on workstation # [id number] Dict: 02/05/18 164 Trans: 02/05/181653 Interpreted by: STEPHY LIANG MD Electronically signed by: STEPHY LIANG MD 02/05/184 Reviewed: Reviewed by Me Departure Communication (Admissions) Time/Spoke to Admitting Phy: 17:[address] Tang and she agrees that this patient should be admitted with consult of Dr. Blankenship. Dr. Blankenship was also called at this time and he agrees that her chest pain rule out. Impression Primary Impression: Chest pain Disposition: ADMITTED INPATIENT Condition: Stable/Unchanged Admissions Decision to Admit Reason: Admit from ER (Trauma) Decision to Admit/Date: Feb 05, 2018 Time/Decision to Admit Time: 17:43 Departure-Patient Inst. Referrals: CHRIS SAGE APRN (PCP/Family) Primary Care Physician Scripts Potassium Chloride (Potassium Chloride) 10 Meq Capsule.er 10 MEQ PO DAILY, #30 CAP 1 Refill Prov: MESHA SINGH Kisha DELCID 02/07/18 PLACIDO RODRIGUEZ Feb 05, 2018 16:20
[2018-02-05 16:28] LABS: BASOPHILS # (AUTO) 0.1 10^3/uL (0.0-0.1); BASOPHILS % (AUTO) 1 % (0-10); EOSINOPHILS # (AUTO) 0.1 10^3/uL (0.0-0.3); EOSINOPHILS % (AUTO) 2 % (0-10); HEMATOCRIT 37 % (35-52); HEMOGLOBIN 12.9 G/DL (11.5-16.0); LYMPHOCYTES # (AUTO) 2.1 X 10^3 (1.0-4.0); LYMPHOCYTES % (AUTO) 25 % (12-44); MEAN CORPUSCULAR HEMOGLOBIN 29 PG (25-34); MEAN CORPUSCULAR HGB CONC 35 G/DL (32-36); MEAN CORPUSCULAR VOLUME 82 FL (80-99); MEAN PLATELET VOLUME 9.5 FL (7.4-10.4); MONOCYTES # (AUTO) 0.7 X 10^3 (0.0-1.0); MONOCYTES % (AUTO) 8 % (0-12); NEUTROPHILS # (AUTO) 5.7 X 10^3 (1.8-7.8); NEUTROPHILS % (AUTO) 66 % (42-75); PLATELET COUNT 337 10^3/uL (130-400); RED BLOOD COUNT 4.53 10^6/uL (4.35-5.85); RED CELL DISTRIBUTION WIDTH 12.5 % (10.0-14.5); WHITE BLOOD COUNT 8.7 10^3/uL (4.3-11.0)
[2018-02-05 16:41] LABS: PROTHROMBIN TIME PATIENT 13.1 SEC (12.2-14.7)
[2018-02-05 16:48] LABS: ALANINE AMINOTRANSFERASE 33 U/L (0-55); ALBUMIN 4.1 GM/DL (3.2-4.5); ALKALINE PHOSPHATASE 84 U/L (40-136); AMYLASE 40 U/L (25-125); BILIRUBIN,TOTAL 0.5 MG/DL (0.1-1.0); BUN/CREATININE RATIO 9; CALCIUM 9.5 MG/DL (8.5-10.1); CARBON DIOXIDE 23 MMOL/L (21-32); CHLORIDE 102 MMOL/L (98-107); CREATININE SERUM 0.81 MG/DL (0.60-1.30); GFR ESTIMATED > 60; GLUCOSE 367 MG/DL (70-105); LIPASE 38 U/L (8-78); MAGNESIUM 1.9 MG/DL (1.8-2.4); POTASSIUM 3.7 MMOL/L (3.6-5.0); SODIUM 137 MMOL/L (135-145); TOTAL PROTEIN 7.1 GM/DL (6.4-8.2)
--- NOTE | 2018-02-05 16:50 | Diagnostic Imaging Report ---
INDICATION: Racing heart and chest pain. TIME OF EXAM: 4:43 p.m. COMPARISON: Correlation is made with prior study from one day earlier. FINDINGS: The heart size is stable. The lungs are clear. The pulmonary vascularity is normal. No infiltrate, effusion or pneumothorax is seen. IMPRESSION: Stable chest. No acute cardiopulmonary process is detected. Dictated by: Dictated on workstation # [id number]
[2018-02-05 16:56] LABS: MYOGLOBIN SERUM 13.4 NG/ML (10.0-92.0)
[2018-02-05 18:05] VITALS: BP 164/87
[2018-02-05] MEDS ORDERED: METO-333 PO ×2 (18:42)
[2018-02-05] MEDS ORDERED: INSU200I4 SQ (18:45)
[2018-02-05] MEDS ORDERED: CLON0.1T PO (18:45)
[2018-02-05] MEDS ORDERED: LOSA100T28 PO (18:45)
[2018-02-05] MEDS ORDERED: INSU100I40 SQ (18:45)
[2018-02-05] MEDS ORDERED: METF500T8 PO (18:48)
[2018-02-05] MEDS ORDERED: HYDR25TA4 PO (18:48)
[2018-02-05 19:39] VITALS: BP 139/85
[2018-02-05] MEDS ORDERED: INSULIN DEGLUDEC 70 UNIT SQ SCH (21:00)
[2018-02-05] MEDS: cloNIDine 0.1 MG (CATAPRES) TAB PO SCH (21:05)
[2018-02-05] MEDS: inSUlin ASPART (NovoLOG) 1 UNIT/0.01 ML (CHARGE PER UNIT) SC SCH (21:16)
[2018-02-06] VITALS (7 sets, daily range): BP systolic 118–138; BP diastolic 76–83
[2018-02-06] MEDS ORDERED: INSULIN ASPART SQ SCH (06:00)
[2018-02-06] MEDS ORDERED: [UNRECOGNIZED DRUG - OTHER] SQ SCH (06:00)
[2018-02-06 06:19] LABS: BASOPHILS % (AUTO) 1 % (0-10); EOSINOPHILS # (AUTO) 0.2 10^3/uL (0.0-0.3); EOSINOPHILS % (AUTO) 3 % (0-10); HEMATOCRIT 35 % (35-52); HEMOGLOBIN 11.9 G/DL (11.5-16.0); LYMPHOCYTES # (AUTO) 2.5 X 10^3 (1.0-4.0); LYMPHOCYTES % (AUTO) 38 % (12-44); MEAN CORPUSCULAR HEMOGLOBIN 28 PG (25-34); MEAN CORPUSCULAR HGB CONC 34 G/DL (32-36); MEAN CORPUSCULAR VOLUME 82 FL (80-99); MEAN PLATELET VOLUME 9.6 FL (7.4-10.4); MONOCYTES # (AUTO) 0.5 X 10^3 (0.0-1.0); MONOCYTES % (AUTO) 7 % (0-12); NEUTROPHILS # (AUTO) 3.3 X 10^3 (1.8-7.8); NEUTROPHILS % (AUTO) 51 % (42-75); PLATELET COUNT 308 10^3/uL (130-400); RED CELL DISTRIBUTION WIDTH 12.6 % (10.0-14.5); WHITE BLOOD COUNT 6.5 10^3/uL (4.3-11.0)
[2018-02-06] MEDS: inSUlin ASPART (NovoLOG) 1 UNIT/0.01 ML (CHARGE PER UNIT) SC SCH ×4 (06:19→20:51)
[2018-02-06 06:43] LABS: ALANINE AMINOTRANSFERASE 28 U/L (0-55); ALBUMIN 3.6 GM/DL (3.2-4.5); ALKALINE PHOSPHATASE 71 U/L (40-136); BILIRUBIN,TOTAL 0.6 MG/DL (0.1-1.0); BUN/CREATININE RATIO 13; CALCIUM 9.3 MG/DL (8.5-10.1); CARBON DIOXIDE 22 MMOL/L (21-32); CHLORIDE 105 MMOL/L (98-107); CREATININE SERUM 0.63 MG/DL (0.60-1.30); GFR ESTIMATED > 60; GLUCOSE 228 MG/DL (70-105); POTASSIUM 3.3 MMOL/L (3.6-5.0); SODIUM 136 MMOL/L (135-145); TOTAL PROTEIN 6.3 GM/DL (6.4-8.2)
[2018-02-06 06:44] LABS: CHOLESTEROL 137 MG/DL (< 200); HDL CHOLESTEROL 31 MG/DL (40-60); TRIGLYCERIDES 107 MG/DL (<150); VLDL CHOLESTEROL 21 MG/DL (5-40)
[2018-02-06] MEDS: HYDROCHLOROTHIAZIDE 25 MG (HCTZ) TAB PO SCH (08:59)
[2018-02-06] MEDS: cloNIDine 0.1 MG (CATAPRES) TAB PO SCH ×2 (08:59→20:11)
[2018-02-06] MEDS ORDERED: NON-FORMULARY MEDICATION 1 EA EA (Hydrochlorothiazide 25 MG) PO SCH (09:00)
[2018-02-06] MEDS: meTOprolol TARTRATE 25 MG (LOPRESSOR) TABLET PO SCH (09:00)
--- NOTE | 2018-02-06 09:41 | Consultation-Cardiology ---
HPI-Cardiology Cardiology Consultation: Date of Consultation 02/06/18 Time Seen by Provider: 09:20 Date of Admission Attending Physician Sahra Tang MD Admitting Physician Franco Colon Aprn Consulting Physician AVINASH VÁZQUEZ MD, MA, FACP, FACC, FSCAI, CCDS HPI: Chief Complaint: Chest discomfort 32 yo woman with chest discomfort that has the following characteristics: Onset: 3-4 days ago Frequency: several times a day Duration: seconds to minutes Location: upper mid chest Character: sharp or dull Associated symptoms: none Relieving factors: none Aggravating factors: none Radiation: to the back Chronic mild to mod exertional shortness of breath No palp or syncope or leg swelling No recent fever or chills Review of Systems-Cardiology Review of Systems Constitutional: No weight loss, No weight gain Eyes: No vision change Ears/Nose/Throat: No ear discharge, No nasal drainage, No recent hearing loss Respiratory: As described under HPI Cardiovascular: As described under HPI Gastrointestinal: No constipation, No diarrhea, No nausea, No vomiting Genitourinary: No dysuria, No hematuria, No urine frequency changes Musculoskeletal: back pain (chest discomfort sometimes radiating to upper back) ; No joint pain Skin: No rash, No ulcerations Psychiatric/Neurological: No seizure, No focal weakness, No syncope Hematologic: No bleeding abnormalities All Other Systems Reviewed Negative Unless Noted: Yes HSI-Yjlbdt-Tvsast Hx Patient Social History Alcohol Use: Denies Use Recreational Drug Use: No Smoking Status: Never a Smoker 2nd Hand Smoke Exposure: No Recent Foreign Travel: No Recent Infectious Disease Expo: No Physical Abuse Screen: No Sexual Abuse: No Immunizations Up To Date Tetanus Booster (TDap): Unknown Date of Pneumonia Vaccine: May 11, 2018 Past Medical History PMH As described under Assessment. Family Medical History Family History: Cardiovascular disease Diabetes mellitus Hypertension Allergies and Home Medications Allergies Coded Allergies: pseudoephedrine (Verified Adverse Reaction, Unknown, 02/05/18) PT STATES CAUSES VOMITING triprolidine (Verified Adverse Reaction, Unknown, 02/05/18) PT STATES CAUSES VOMITING Home Medications Clonidine HCl 0.1 Mg Tablet, 0.1 MG PO BID, (Reported) Hydrochlorothiazide 25 Mg Tablet, 25 MG PO DAILY, (Reported) Insulin Aspart (Niacinamide) 100 Unit/1 Ml Insuln.pen, 17 UNITS SQ AC, (Reported ) Insulin Degludec 200 Unit/1 Ml Insuln.pen, 70 UNITS SQ HS, (Reported) Losartan Potassium 100 Mg Tablet, 100 MG PO 1900, (Reported) Metformin HCl 500 Mg Tab.er.24h, 1,000 MG PO BID, (Reported) Metoprolol Tartrate 25 Mg Tablet, 50 MG PO 0900, (Reported) Metoprolol Tartrate 25 Mg Tablet, 25 MG PO 1900, (Reported) Patient Home Medication List Home Medication List Reviewed: Yes Physical Exam-Cardiology Physical Exam Vital Signs/I&O 02/06/18 02/06/18 02/06/18 02/06/18 00:00 01:00 04:00 04:05 Temp 99.0 99.0 99.0 Pulse 78 85 75 78 Resp 20 20 20 B/P (MAP) 128/77 (94) 138/77 (97) 128/77 (94) Pulse Ox 95 94 95 O2 Delivery Room Air Room Air Room Air 02/06/18 02/06/18 07:00 08:05 Pulse 84 O2 Delivery Room Air 02/06/18 00:00 Intake Total 620 ml Output Total 800 ml Balance -180 ml Capillary Refill : Less Than 3 SecondsLess Than 3 Seconds Constitutional: AAO x 3, well-developed, well-nourished HEENT: PERRL, EOMI; No xanthelasmas are seen Neck: No carotid bruit, No carotid pulses are 2 + bilaterally, No with good upstrokes Respiratory: No accessory muscle use; lungs clear to percussion, lungs clear to auscultation Cardiovascular: regular rate-rhythm, S1 and S2, systolic murmur (faint GIOVANNY at card base) Gastrointestinal: No tender; soft; No guarding, No rebound; audible bowel sounds Extremities: No clubbing, No cyanosis, No significant edema Neurologic/Psychiatric: oriented x 3, grossly intact, power is 5/5 both on sides Skin: No rash on exposed areas, No ulcerations on exposed areas Data Review Labs Laboratory Tests 02/05/18 16:20: White Blood Count 8.7, Red Blood Count 4.53, Hemoglobin 12.9, Hematocrit 37, Mean Corpuscular Volume 82, Mean Corpuscular Hemoglobin 29, Mean Corpuscular Hemoglobin Concent 35, Red Cell Distribution Width 12.5, Platelet Count 337, Mean Platelet Volume 9.5, Neutrophils (%) (Auto) 66, Lymphocytes (%) (Auto) 25, Monocytes (%) (Auto) 8, Eosinophils (%) (Auto) 2, Basophils (%) (Auto) 1, Neutrophils # (Auto) 5.7, Lymphocytes # (Auto) 2.1, Monocytes # (Auto) 0.7, Eosinophils # (Auto) 0.1, Basophils # (Auto) 0.1, Prothrombin Time 13.1, INR Comment 1.0, Activated Partial Thromboplast Time 24, D-Dimer < 0.27, Sodium Level 137, Potassium Level 3.7, Chloride Level 102, Carbon Dioxide Level 23, Anion Gap 12, Blood Urea Nitrogen 7, Creatinine 0.81, Estimat Glomerular Filtration Rate > 60, BUN/Creatinine Ratio 9, Glucose Level 367H, Calcium Level 9.5, Magnesium Level 1.9, Total Bilirubin 0.5, Aspartate Amino Transf (AST/SGOT ) 19, Alanine Aminotransferase (ALT/SGPT) 33, Alkaline Phosphatase 84, Myoglobin 13.4, Troponin I < 0.30, B-Type Natriuretic Peptide 39.2, Total Protein 7.1, Albumin 4.1, Amylase Level 40, Lipase 38, Serum Test, Qualitative NEGATIVE 02/05/18 20:08: Troponin I < 0.30 02/05/18 20:42: Glucometer 287H 02/06/18 05:03: Glucometer 206H 02/06/18 05:43: White Blood Count 6.5, Red Blood Count 4.30L, Hemoglobin 11.9, Hematocrit 35, Mean Corpuscular Volume 82, Mean Corpuscular Hemoglobin 28, Mean Corpuscular Hemoglobin Concent 34, Red Cell Distribution Width 12.6, Platelet Count 308, Mean Platelet Volume 9.6, Neutrophils (%) (Auto) 51, Lymphocytes (%) (Auto) 38, Monocytes (%) (Auto) 7, Eosinophils (%) (Auto) 3, Basophils (%) (Auto) 1, Neutrophils # (Auto) 3.3, Lymphocytes # (Auto) 2.5, Monocytes # (Auto) 0.5, Eosinophils # (Auto) 0.2, Basophils # (Auto) 0.0, Sodium Level 136, Potassium Level 3.3L, Chloride Level 105, Carbon Dioxide Level 22, Anion Gap 9, Blood Urea Nitrogen 8, Creatinine 0.63, Estimat Glomerular Filtration Rate > 60, BUN/ Creatinine Ratio 13, Glucose Level 228H, Calcium Level 9.3, Total Bilirubin 0.6 , Aspartate Amino Transf (AST/SGOT) 20, Alanine Aminotransferase (ALT/SGPT) 28, Alkaline Phosphatase 71, Troponin I < 0.30, Total Protein 6.3L, Albumin 3.6, Triglycerides Level 107, Cholesterol Level 137, LDL Cholesterol Direct 99, VLDL Cholesterol 21, HDL Cholesterol 31L Laboratory Tests 02/05/18 16:20 02/06/18 05:43 A/P-Cardiology Assessment/Admission Diagnosis Chest discomfort w/o evidence of ACS DM II Hypertension Hypokalemi, likely related to chronic therapy with HCTZ Obesity with BMI approx 44 Abnormal ECG: ECG of 02/06/18 shows NSR with voltage for LVH and with clockwise rotation of the heart H/o palpitations Fam h/o early CAD Discussion and Recomendations * Given nonspecific symptoms in the presence of multiple CAD risk factors, we recommend MPI for cor eval and echo for eval of structural heart disease * Josue K * I discussed her case with Dr Tang of the [facility] * Further recs to be based on her hosp course Clinical Quality Measures AMI/AHF: ASA po Prior to arrival: Yes DVT/VTE Risk/Contraindication: Risk Factor Score Per Nursin RFS Level Per Nursing on Admit: 1=Low/No VTE PPX AVINASH VÁZQUEZ MD FACP FAC CCDS Feb 06, 2018 09:41
[2018-02-06] MEDS ORDERED: KCL 20 MEQ TAB (K-DUR) PO NR (10:00)
--- NOTE | 2018-02-06 10:14 | History & Physical-Hospitalist ---
History of Present Illness HPI/Chief Complaint Pt is a 32yoCF with a PMH of HTN, IDDMII who presented to the ER for heart racing and chest discomfort. She states this all started last month and she was seen in the ER and by her primary care MIDWIFE for this and had gone a few weeks without recurrence then 2 days ago she was resting watching TV when her heart started racing. She was evaluated and discharged home as her heart rate was normal. Yesterday afternoon this recurred and she had chest pain with it. She denied any SOB, nausea, vomiting, or diaphoresis with this. She denies any significant caffeine intake, stress, or anxiety. She is not on control. Source: patient Exam Limitations: no limitations Date Seen 02/06/18 Time Seen by Provider: 10:14 Attending Physician Bo Tang MD PCP Franco Colon Aprn Referring Physician Date of Admission Feb 05, 2018 at 17:30 Home Medications & Allergies Home Medications Reviewed patient Home Medication Reconciliation performed by pharmacy medication reconciliations atmospheric technician and/or nursing. Patients Allergies have been reviewed. Allergies Allergies Coded Allergies pseudoephedrine (Verified Adverse Reaction, Unknown, 02/05/18) PT STATES CAUSES VOMITING triprolidine (Verified Adverse Reaction, Unknown, 02/05/18) PT STATES CAUSES VOMITING Past Nivmqtn-Gsdjgy-Knvhww Hx Past Med/Social Hx: Reviewed Nursing Past Med/Soc Hx Patient Social History Alcohol Use: Denies Use Recreational Drug Use: No Smoking Status: Never a Smoker 2nd Hand Smoke Exposure: No Physical Abuse Screen: No Sexual Abuse: No Recent Foreign Travel: No Contact w/other who traveled: No Recent Hopitalizations: No Recent Infectious Disease Expo: No Immunizations Up To Date Tetanus Booster (TDap): Unknown Pediatric: Yes Date of Pneumonia Vaccine: May 11, 2018 Seasonal Allergies Seasonal Allergies: No Past Medical History Cardiac: High Cholesterol, Hypertension Endocrine: Diabetes, Insulin dep History of Blood Disorders: No Adverse Reaction to Blood Ramon: No Family History Reviewed Nursing Family Hx Cardiovascular disease Diabetes mellitus Hypertension Heart Disease, CAD Under 55 Years Old, CVA Review of Systems Constitutional: No chills, No diaphoresis, No dizziness, No fever EENTM: No blurred vision, No double vision, No nose congestion, No throat pain Respiratory: No cough, No dyspnea on exertion, No short of breath Cardiovascular: chest pain; No edema, No Hx of Intervention; palpitations; No syncope Gastrointestinal: No abdominal pain, No constipation, No diarrhea, No nausea, No vomiting Genitourinary: No dysuria, No frequency Musculoskeletal: No joint pain, No muscle pain Skin: No lesions, No rash Psychiatric/Neurological: Denies Anxiety, Denies Emotional Problems, Denies Headache, Denies Numbness, Denies Tingling Physical Exam Physical Exam Vital Signs Vital Signs - First Documented 02/05/18 02/05/18 16:23 16:34 Temp 97.8 Pulse 91 Resp 20 B/P (MAP) 143/98 (113) Pulse Ox 97 O2 Delivery Room Air Capillary Refill : Less Than 3 SecondsLess Than 3 Seconds Height, Weight, BMI Height: 5'4.00" Weight: 255lbs. 6.0oz. 115.728719ay; 44.3 BMI Method:Stated General Appearance: No Apparent Distress, Anxious, Obese HEENT: Moist Mucous Membranes; No Scleral Icterus (L), No Scleral Icterus (R) Neck: Normal Inspection, Supple Respiratory: Lungs Clear, No Respiratory Distress Cardiovascular: Regular Rate, Rhythm, No JVD, No Murmur Gastrointestinal: Normal Bowel Sounds, Non Tender, Soft Extremity: Non Tender, No Calf Tenderness, No Pedal Edema Neurologic/Psychiatric: Alert, Oriented x3, No Motor/Sensory Deficits Results Results/Procedures Labs Laboratory Tests 02/05/18 16:20 02/06/18 05:43 Patient resulted labs reviewed. Imaging: Reviewed Imaging Report Assessment/Plan Admission Diagnosis Chest pain Admission Status: Observation Diagnosis/Problems Diagnosis/Problems (1) Chest pain Status: Acute Assessment & Plan: D dimer negative Troponin negative EKG negative Cardiology consulted, appreciate recs Plan for stress test tomorrow Qualifiers: Chest pain type: unspecified Qualified Codes: R07.9 - Chest pain, unspecified (2) Insulin dependent diabetes mellitus Assessment & Plan: Discussed subs with Pharmacy to resume home insulin regimen May take home meds Clinical Quality Measures AMI/AHF: ASA po Prior to arrival: Yes DVT/VTE Risk/Contraindication: Risk Factor Score Per Nursin RFS Level Per Nursing on Admit: 1=Low/No VTE PPX BO TANG MD Feb 06, 2018 10:14
[2018-02-06] MEDS ORDERED: KCL 20 MEQ TAB (K-DUR) PO ONE (10:21)
[2018-02-06] MEDS ORDERED: PATIENT MAY USE OWN MEDS, ALL MC SCH (10:30)
[2018-02-06] MEDS: inSUlin ASPART (NovoLOG) 1 UNIT/0.01 ML (CHARGE PER UNIT) SQ SCH ×2 (11:11→17:39)
[2018-02-06] MEDS ORDERED: meTOprolol TARTRATE 25 MG (LOPRESSOR) TABLET PO SCH (19:00)
[2018-02-06] MEDS ORDERED: ONDANSETRON 4 MG (ZOFRAN) ORAL DISSOLVE TAB PO PRN (19:00)
[2018-02-06] MEDS ORDERED: LOSARTAN 100 MG (COZAAR) TABLET PO SCH (19:00)
[2018-02-06] MEDS: ACETAMINOPHEN 500 MG TAB (TYLENOL) PO PRN (20:11)
[2018-02-06] MEDS ORDERED: inSUlin DETERMIR 1 UNIT/0.01 ML (LEVEMIR) CHARGE PER UNIT SQ SCH (21:00)
[2018-02-07] VITALS (7 sets, daily range): BP systolic 117–134; BP diastolic 64–82
[2018-02-07 05:58] LABS: BASOPHILS % (AUTO) 0 % (0-10); EOSINOPHILS # (AUTO) 0.2 10^3/uL (0.0-0.3); EOSINOPHILS % (AUTO) 2 % (0-10); HEMATOCRIT 36 % (35-52); HEMOGLOBIN 12.3 G/DL (11.5-16.0); LYMPHOCYTES # (AUTO) 2.1 X 10^3 (1.0-4.0); LYMPHOCYTES % (AUTO) 29 % (12-44); MEAN CORPUSCULAR HEMOGLOBIN 28 PG (25-34); MEAN CORPUSCULAR HGB CONC 34 G/DL (32-36); MEAN CORPUSCULAR VOLUME 83 FL (80-99); MEAN PLATELET VOLUME 9.5 FL (7.4-10.4); MONOCYTES # (AUTO) 0.5 X 10^3 (0.0-1.0); MONOCYTES % (AUTO) 7 % (0-12); NEUTROPHILS # (AUTO) 4.5 X 10^3 (1.8-7.8); NEUTROPHILS % (AUTO) 61 % (42-75); PLATELET COUNT 319 10^3/uL (130-400); RED BLOOD COUNT 4.37 10^6/uL (4.35-5.85); RED CELL DISTRIBUTION WIDTH 12.7 % (10.0-14.5); WHITE BLOOD COUNT 7.3 10^3/uL (4.3-11.0)
[2018-02-07] MEDS: inSUlin ASPART (NovoLOG) 1 UNIT/0.01 ML (CHARGE PER UNIT) SC SCH ×2 (06:09→11:31)
[2018-02-07] MEDS: inSUlin ASPART (NovoLOG) 1 UNIT/0.01 ML (CHARGE PER UNIT) SQ SCH ×2 (06:09→11:31)
[2018-02-07 06:17] LABS: BUN/CREATININE RATIO 13; CALCIUM 9.3 MG/DL (8.5-10.1); CARBON DIOXIDE 23 MMOL/L (21-32); CHLORIDE 103 MMOL/L (98-107); CREATININE SERUM 0.63 MG/DL (0.60-1.30); GFR ESTIMATED > 60; GLUCOSE 207 MG/DL (70-105); POTASSIUM 3.5 MMOL/L (3.6-5.0); SODIUM 136 MMOL/L (135-145)
[2018-02-07] MEDS: CATHETER FLUSH 10 ML SYR IV PRN ×2 (07:10→08:20)
[2018-02-07] MEDS ORDERED: REGADENOSON 0.4 MG/5 ML SYR (LEXISCAN) IV ONE ×2 (08:07→08:30)
--- NOTE | 2018-02-07 08:53 | Progress Note-Cardiology ---
Cardiology SOAP Progress Note Subjective: Continues to c/o occ chest discomfort. No c/o palpitations, dyspnea, syncope or near syncope at this time. Objective: I&O/Vital Signs 02/07/18 02/07/18 02/07/18 02/07/18 04:20 07:00 08:11 09:22 Temp 98.0 99.1 Pulse 76 88 82 89 Resp 17 16 18 B/P (MAP) 118/73 (88) 134/79 (97) 123/64 (83) Pulse Ox 95 98 96 O2 Delivery Room Air Room Air Room Air 02/07/18 02/07/18 12:00 13:00 Temp 97.2 Pulse 82 90 Resp 20 B/P (MAP) 117/82 (94) Pulse Ox 95 O2 Delivery Room Air 02/07/18 00:00 Intake Total 1800 ml Output Total 1400 ml Balance 400 ml Weight (Pounds): 255 Weight (Ounces): 6.0 Weight (Calculated Kilograms): 115.241098 Constitutional: AAO x 3, well-developed, well-nourished Respiratory: No accessory muscle use; lungs clear to percussion, lungs clear to auscultation Cardiovascular: regular rate-rhythm, S1 and S2, systolic murmur (faint GIOVANNY at card base) Gastrointestional: No tender; soft; No guarding, No rebound; audible bowel sounds Extremities: No clubbing, No cyanosis, No significant edema Neurologic/Psychiatric: oriented x 3, grossly intact, power is 5/5 both on sides Skin: No rash on exposed areas, No ulcerations on exposed areas Results/Procedures: Labs Laboratory Tests 02/06/18 15:50: Glucometer 264H 02/06/18 20:39: Glucometer 224H 02/07/18 05:24: White Blood Count 7.3, Red Blood Count 4.37, Hemoglobin 12.3, Hematocrit 36, Mean Corpuscular Volume 83, Mean Corpuscular Hemoglobin 28, Mean Corpuscular Hemoglobin Concent 34, Red Cell Distribution Width 12.7, Platelet Count 319, Mean Platelet Volume 9.5, Neutrophils (%) (Auto) 61, Lymphocytes (%) (Auto) 29, Monocytes (%) (Auto) 7, Eosinophils (%) (Auto) 2, Basophils (%) (Auto) 0, Neutrophils # (Auto) 4.5, Lymphocytes # (Auto) 2.1, Monocytes # (Auto) 0.5, Eosinophils # (Auto) 0.2, Basophils # (Auto) 0.0, Sodium Level 136, Potassium Level 3.5L, Chloride Level 103, Carbon Dioxide Level 23, Anion Gap 10, Blood Urea Nitrogen 8, Creatinine 0.63, Estimat Glomerular Filtration Rate > 60, BUN/ Creatinine Ratio 13, Glucose Level 207H, Calcium Level 9.3, Magnesium Level 2.0 , Thyroid Stimulating Hormone (TSH) 2.15 02/07/18 05:54: Glucometer 206H 02/07/18 11:13: Glucometer 287H Laboratory Tests 02/05/18 16:20 02/06/18 05:43 02/07/18 05:24 A/P: Assessment: Chest discomfort w/o evidence of ACS. No evidence of cor ischemia or infarction on MPI of 02/07/18 that also shows normal LV function DM II Hypertension Hypokalemia, likely related to chronic therapy with HCTZ Obesity with BMI approx 44 Abnormal ECG: ECG of 02/06/18 shows NSR with voltage for LVH and with clockwise rotation of the heart H/o palpitations Fam h/o early CAD Plan: * Given nonspecific symptoms in the presence of multiple CAD risk factors, we recommend MPI for cor eval and echo for eval of structural heart disease - pending * Replenish K * Monitor lab * Dr. Blankenship discussed her case with Dr Tang of the [facility] * Further recs to be based on her hosp course Physician Assessment Physician Assessment Feels better today. No cp or palp or syncope Lungs: clear Cor: reg Ext: no c/c/e A&R * As documented in our note above that I updated in italics, and as noted below * Risk factor mod reviewed * Outpt f/u advised * Efforts at wgt loss advised Clinical Quality Measures AMI/AHF: ASA po Prior to arrival: Yes MESHA SINGH ASSOCIATE PROFESSOR OF [employer]RARY MEDIA Feb 07, 2018 08:53 AVINASH BLANKENSHIP MD FACP [facility]S Feb 07, 2018 14:59
[2018-02-07] MEDS ORDERED: KCL 20 MEQ TAB (K-DUR) PO NR (09:00)
[2018-02-07] MEDS: cloNIDine 0.1 MG (CATAPRES) TAB PO SCH (09:42)
[2018-02-07] MEDS: HYDROCHLOROTHIAZIDE 25 MG (HCTZ) TAB PO SCH (09:42)
[2018-02-07] MEDS: meTOprolol TARTRATE 25 MG (LOPRESSOR) TABLET PO SCH (09:43)
[2018-02-07] MEDS: ACETAMINOPHEN 500 MG TAB (TYLENOL) PO PRN (13:44)
--- NOTE | 2018-02-07 13:53 | STRESS TEST ---
DATE OF SERVICE: 02/07/2018 RESTING AND POST REGADENOSON TECHNETIUM 99M TETROFOSMIN SPECT CT IMAGING Baseline images were carried out after injection of 10.42 mCi of technetium-99m Tetrofosmin. This was followed by 0.4 mg of regadenoson and 30.7 mCi of technetium-99m Tetrofosmin for stress imaging. The electrocardiogram showed sinus rhythm at baseline and did not change significantly with regadenoson infusion. The patient tolerated the procedure well. She did note some chest discomfort with regadenoson infusion, which resolved in a few minutes. Review of images at rest and following stress does not indicate any significant perfusion defects consistent with significant myocardial ischemia or infarction. Gated images showed normal global left ventricular systolic function with normal regional wall motion. Left ventricular ejection fraction is calculated to be 76%. CONCLUSIONS: 1. No evidence of any significant myocardial ischemia or infarction on this study. 2. Normal regional wall motion. 3. Normal global left ventricular systolic function with a calculated ejection fraction 76%. Job ID: [id number] DocumentID: [id number] Dictated Date: 02/07/2018 13:31:45 [employer] Machine Operator Date: 02/07/2018 13:52:57 Dictated By: AVINASH VÁZQUEZ MD, MA, FACP, FACC,
[2018-02-07] MEDS ORDERED: POTA10CA43 PO (15:10)
--- NOTE | 2018-02-07 15:41 | Progress Note-Hospitalist ---
Progress Note Progress Notes/Assess & Plan Date Seen 02/07/18 Time Seen by Provider: 15:39 Assessment & Plan The patient is a 32-year-old white female diabetic. She has had 8 emergency room visits since November 24. On the present appearance she complaint of chest pain and was admitted for further evaluation. She had a nuclear stress scan this morning which was reported normal and is ready for discharge. Physical exam: She is morbidly obese. Lungs are clear to auscultation. CV is regular without murmur. Extremities show no pedal edema. Impression: Diabetes mellitus. 2.morbid obesity. Plan: Discharge. For medications and routines see the discharge sequence. GISSEL DOMINGO MD Feb 07, 2018 15:41
--- NOTE | 2018-02-07 15:44 | Discharge Instructions ---
Discharge Instructions Patient Instructions Patient Instructions: Medications as listed in the discharge sequence. Activities as usual. Continue to work with your enrollment counselor for tight control of diabetes and weight loss. Make outpatient appointment with AVINASH Cdae Activity & Diet Discharge Diet: ADA Diet Activity as Tolerated: Yes GISSEL DOMINGO MD Feb 07, 2018 15:44
[2018-02-08] MEDS ORDERED: KCL 10 MEQ TAB (MICRO K) PO SCH (07:00)
== END 2018-02-07 15:41 | disposition home or self-care (01) ==
LOC: EDUNIT# 16:08 → ER 16:10 → UNDOADMOB 17:30 → 4TH 17:30 → UNDODISOB 02-07 16:25
PROVIDERS: ADMIT Family Medicine; ATTEND Family Medicine
DX: R07.89 Other chest pain (principal); R00.2 Palpitations; I10 Essential (primary) hypertension; E87.6 Hypokalemia; E11.9 Type 2 diabetes mellitus without complications; R94.31 Abnormal electrocardiogram [ECG] [EKG]; E66.01 Morbid (severe) obesity due to excess calories; Z68.42 Body mass index [BMI] 45.0-49.9, adult; Z82.49 Family history of ischemic heart disease and other diseases of the circulatory system; Z79.4 Long term (current) use of insulin
CPT/HCPCS: 36415; 71045; 78452; 80048; 80053; 80061; 82150; 82962; 83690; 83735; 83874; 83880; 84443; 84484; 84703; 85025; 85379; 85610; 85730; 93005; 93017; 93041; 93306; G0378

== ENCOUNTER 2018-02-10 15:31 | Emergency (ER) | payer BC ==
[~2018-02-10] VITALS: Ht 162.6 cm; Wt 115.7 kg
[~2018-02-10 15:31] MED LIST changes: +CLON0.1T PO; +HYDR25TA4 PO; +INSU100I40 SQ; +INSU200I4 SQ; +LOSA100T28 PO; +METF500T8 PO; +METO-333 PO; +POTA10CA43 PO
--- NOTE | 2018-02-10 16:48 | ED General ---
General Chief Complaint: Chest Pain Stated Complaint: CP, L ARM AND HAND TINGLING Nursing Triage Note: PATIENT STATES THAT SHE IS HERE FOR THE SAME COMPLAINTS SHE WAS WORKED UP FOR LAST WEEK. SHE STATES SHE HAS BEEN HERE SEVERAL TIMES IN THE LAST MONTH FOR SIMILAR COMPLAINTS. SHE STATES THAT THIS TIME HER "LEFT ARM TINGLES A LITTLE BIT." Nursing Sepsis Screen: No Definite Risk Source of Information: Patient, Old Records Exam Limitations: No Limitations History of Present Illness Date Seen by Provider: Feb 10, 2018 Time Seen by Provider: 15:39 Initial Comments This 32-year-old woman presents to the emergency room with primary complaint of left-sided chest pain as well as paresthesias in the left upper and lower extremities. She has been seen multiple times in this ER for similar complaints and was admitted on February 05. She had a thorough workup revealing no significant abnormalities. This workup included stress test. Patient states symptoms similar but more intense today. Allergies and Home Medications Allergies Coded Allergies: pseudoephedrine (Verified Adverse Reaction, Unknown, 02/05/18) PT STATES CAUSES VOMITING triprolidine (Verified Adverse Reaction, Unknown, 02/05/18) PT STATES CAUSES VOMITING Home Medications Clonidine HCl 0.1 Mg Tablet, 0.1 MG PO BID, (Reported) Hydrochlorothiazide 25 Mg Tablet, 25 MG PO DAILY, (Reported) Insulin Aspart (Niacinamide) 100 Unit/1 Ml Insuln.pen, 17 UNITS SQ AC, (Reported ) Insulin Degludec 200 Unit/1 Ml Insuln.pen, 70 UNITS SQ HS, (Reported) Losartan Potassium 100 Mg Tablet, 100 MG PO 1900, (Reported) Metformin HCl 500 Mg Tab.er.24h, 1,000 MG PO BID, (Reported) take 2 (500 mg) tablets twice daily Metoprolol Tartrate 25 Mg Tablet, 50 MG PO 0900, (Reported) take 2 (25 mg) tablets every morning Metoprolol Tartrate 25 Mg Tablet, 25 MG PO 1900, (Reported) Potassium Chloride 10 Meq Capsule.er, 10 MEQ PO DAILY Prescribed by: MESHA SINGH on 02/07/18 1510 Patient Home Medication List Home Medication List Reviewed: Yes Review of Systems Constitutional: no symptoms reported EENTM: no symptoms reported Respiratory: no symptoms reported Cardiovascular: see HPI Gastrointestinal: no symptoms reported Genitourinary: no symptoms reported Musculoskeletal: see HPI Skin: no symptoms reported Psychiatric/Neurological: See HPI Hematologic/Lymphatic: No Symptoms Reported Past Doetrjj-Abeohl-Iygdvp Hx Patient Social History Alcohol Use: Denies Use Recreational Drug Use: No Smoking Status: Never a Smoker 2nd Hand Smoke Exposure: No Recent Foreign Travel: No Contact w/Someone Who Travel: No Recent Infectious Disease Expo: No Recent Hopitalizations: No Physical Abuse: No Sexual Abuse: No Immunizations Up To Date Tetanus Booster (TDap): Unknown PED Vaccines UTD: Yes Date of Pneumonia Vaccine: May 11, 2018 Seasonal Allergies Seasonal Allergies: No Past Medical History Surgeries: Yes (wisdom teeth) Respiratory: No Cardiac: Yes High Cholesterol, Hypertension Neurological: No : No Genitourinary: No Gastrointestinal: No Musculoskeletal: No Endocrine: Yes Diabetes, Insulin dep HEENT: No Cancer: No Psychosocial: No Nursing Suicide Risk Score: 0 Integumentary: No Blood Disorders: No Adverse Reaction/Blood Tranf: No Family Medical History Cardiovascular disease Diabetes mellitus Hypertension Heart Disease, CAD Under 55 Years Old, CVA Physical Exam Vital Signs Vital Signs - First Documented 02/10/18 15:40 Temp 97.8 Pulse 101 Resp 18 B/P (MAP) 133/89 (104) Pulse Ox 96 Capillary Refill : Less Than 3 Seconds Height, Weight, BMI Height: 5'4.00" Weight: 255lbs. 0oz. 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, Other (Mild fine tremor of the extremities) Skin: Normal Color, Warm/Dry Progress/Results/Core Measures Suspected Sepsis Recent Fever Within 48 Hours: No Infection Criteria Present: None New/Unexplained Altered Menta: No Sepsis Screen: No Definite Risk SIRS Temperature:97.8 Pulse: 101 Respiratory Rate: 18 Blood Pressure 133 /89 Mean: 104 Results/Orders Lab Results Laboratory Tests Test 7/19/18 15:52 Range/Units Glucometer 196 H 70-110 MG/DL My Orders Orders - ASIYA MARTINEZ MD Accucheck Stat ONCE (02/10/18 16:11) Vital Signs/I&O 02/10/18 02/10/18 15:40 16:50 Temp 97.8 97.8 Pulse 101 101 Resp 18 18 B/P (MAP) 133/89 (104) 133/89 (104) Pulse Ox 96 96 Capillary Refill : Less Than 3 Seconds Blood Pressure Mean: 104 Point of Care Testing Finger Stick Blood Glucose: 196 Blood Glucose Action Taken: DR NOTIFIED Progress Note : Progress Note Patient has no new symptoms today. Chart was reviewed and thorough workup was performed previously without any revelation of pathology. Symptoms of numbness and paresthesias as well as the intermittent pains may be related to cervical radiculopathy. MRI is not available today. Patient was advised to follow-up with her primary care provider and discuss the possibility of outpatient MRI orders. Patient expressed understanding. See discharge instructions. Departure Impression Primary Impression: Atypical chest pain Additional Impression: Paresthesia of left arm and leg Disposition: 01 HOME, SELF-CARE Condition: Stable Departure-Patient Inst. Decision time for Depature: 16:35 Referrals: CHRIS SAGE APRN (PCP/Family) Primary Care Physician Patient Instructions: Paresthesias (DC) Add. Discharge Instructions: Follow-up with your primary care provider as soon as possible. Discussed the potential for imaging of your head and neck such as MRI. Narrowing of the spinal canal or impingement of a nerve may be causing your pain. Return to the emergency room if symptoms are worsening. All discharge instructions reviewed with patient and/or family. Voiced understanding. ASIYA MARTINEZ MD Feb 10, 2018 16:48
[2018-02-10 16:50] VITALS: BP 133/89
== END 2018-02-10 16:52 | disposition home or self-care (01) ==
LOC: EDUNIT# 15:31 → ER 15:33
DX: R07.89 Other chest pain (principal); R20.2 Paresthesia of skin; E78.00 Pure hypercholesterolemia, unspecified; I10 Essential (primary) hypertension; E11.9 Type 2 diabetes mellitus without complications; Z82.49 Family history of ischemic heart disease and other diseases of the circulatory system; Z88.8 Allergy status to other drugs, medicaments and biological substances; Z79.4 Long term (current) use of insulin
CPT/HCPCS: 82962; 99283

== ENCOUNTER → 2018-02-16 | Outpatient (CLI) | payer BC ==
--- NOTE | 2018-02-16 17:34 | Diagnostic Imaging Report ---
EXAMINATION: Bilateral feet. INDICATION: Diabetes mellitus with foot ulcer. TECHNIQUE: Three views of each foot were obtained. COMPARISON: There are no prior studies available for comparison. FINDINGS: There is no fracture, dislocation, or acute bony abnormality evident. There is soft tissue edema about the great toes, particularly on the left. There is no sign of bony destruction to suggest osteomyelitis, however. Even so, if clinical concern regarding osteomyelitis persists, then either a three-phase nuclear medicine bone scan or MRI would be recommended for additional evaluation. There is deformity of the head of the second metatarsal of the right foot. This may be a sequela of prior trauma and/or surgery. There did not appear to be any significant degenerative changes involving the feet. There are bilateral calcaneal spurs, however. The soft tissues are generally unremarkable aside from the soft tissue edema about the great toes. IMPRESSION: 1. There is no evidence for an acute bony abnormality. 2. There is soft tissue edema about each great toe but there is no sign of bony destruction. Recommendations as above. Dictated by: Dictated on workstation # [id number]
== END ==
LOC: RAD 16:09
PROVIDERS: ATTEND Surgery
DX: E11.621 Type 2 diabetes mellitus with foot ulcer (principal); E11.42 Type 2 diabetes mellitus with diabetic polyneuropathy; E11.65 Type 2 diabetes mellitus with hyperglycemia; L97.523 Non-pressure chronic ulcer of other part of left foot with necrosis of muscle; L97.512 Non-pressure chronic ulcer of other part of right foot with fat layer exposed; E66.01 Morbid (severe) obesity due to excess calories

== ENCOUNTER → 2018-02-16 | Outpatient (CLI) | payer BC | LOC: WOUNDCARE 14:13 | PROVIDERS: ATTEND Surgery | DX: E11.621 Type 2 diabetes mellitus with foot ulcer (principal); L97.522 Non-pressure chronic ulcer of other part of left foot with fat layer exposed; L97.512 Non-pressure chronic ulcer of other part of right foot with fat layer exposed; E11.42 Type 2 diabetes mellitus with diabetic polyneuropathy; E11.65 Type 2 diabetes mellitus with hyperglycemia; E66.01 Morbid (severe) obesity due to excess calories; Z68.41 Body mass index [BMI] 40.0-44.9, adult | CPT/HCPCS: 11042; 11043; 87070; 87075; 87077; 87186; 87205 ==

== ENCOUNTER → 2018-02-17 | Outpatient (CLI) | payer BC ==
[2018-02-17 15:12] LABS: BUN/CREATININE RATIO 14; CALCIUM 9.3 MG/DL (8.5-10.1); CARBON DIOXIDE 26 MMOL/L (21-32); CHLORIDE 101 MMOL/L (98-107); CREATININE SERUM 0.71 MG/DL (0.60-1.30); GFR ESTIMATED > 60; GLUCOSE 248 MG/DL (70-105); MAGNESIUM 1.8 MG/DL (1.8-2.4); POTASSIUM 3.6 MMOL/L (3.6-5.0); SODIUM 137 MMOL/L (135-145)
== END ==
LOC: LAB 14:36
PROVIDERS: ATTEND Nurse Practitioner Family
DX: E87.6 Hypokalemia (principal)
CPT/HCPCS: 36415; 80048; 83735

== ENCOUNTER → 2018-02-21 | Outpatient (CLI) | payer BC | LOC: WOUNDCARE 15:22 | PROVIDERS: ATTEND Surgery | DX: E11.621 Type 2 diabetes mellitus with foot ulcer (principal); L97.522 Non-pressure chronic ulcer of other part of left foot with fat layer exposed; L97.512 Non-pressure chronic ulcer of other part of right foot with fat layer exposed; E11.42 Type 2 diabetes mellitus with diabetic polyneuropathy; E11.65 Type 2 diabetes mellitus with hyperglycemia; E66.01 Morbid (severe) obesity due to excess calories; Z68.41 Body mass index [BMI] 40.0-44.9, adult | CPT/HCPCS: 11042 ==

== ENCOUNTER → 2018-02-28 | Outpatient (CLI) | payer BC | LOC: WOUNDCARE 15:12 | PROVIDERS: ATTEND Surgery | DX: E11.621 Type 2 diabetes mellitus with foot ulcer (principal); L97.522 Non-pressure chronic ulcer of other part of left foot with fat layer exposed; L97.512 Non-pressure chronic ulcer of other part of right foot with fat layer exposed; E11.42 Type 2 diabetes mellitus with diabetic polyneuropathy; E11.65 Type 2 diabetes mellitus with hyperglycemia; E66.01 Morbid (severe) obesity due to excess calories; Z68.41 Body mass index [BMI] 40.0-44.9, adult | CPT/HCPCS: 11042 ==

== ENCOUNTER → 2018-03-07 | Outpatient (CLI) | payer BC | LOC: WOUNDCARE 14:43 | PROVIDERS: ATTEND Surgery | DX: E11.621 Type 2 diabetes mellitus with foot ulcer (principal); L97.522 Non-pressure chronic ulcer of other part of left foot with fat layer exposed; L97.512 Non-pressure chronic ulcer of other part of right foot with fat layer exposed; E11.42 Type 2 diabetes mellitus with diabetic polyneuropathy; E11.65 Type 2 diabetes mellitus with hyperglycemia; E66.01 Morbid (severe) obesity due to excess calories; Z68.41 Body mass index [BMI] 40.0-44.9, adult | CPT/HCPCS: 11042 ==